=== PATIENT | female | born 1960 | race Caucasian/White ===

== ENCOUNTER → 2016-08-23 | Outpatient (CLI) | payer OTHER ==
[~2016-08-23] MED LIST: CALTTAB10 PO; DOC-Q-LACE PO; IRON CR PO; LORA10TA2 PO; RANI15TA PO; TYLE325T5 PO; VITA100037 PO; VITA500T53 PO
[2016-08-23 08:44] LABS: BASO # 0.1 K/mm3 (0.0-0.2); BASO % 1.3 % (0.0-1.0); EOS # 0.2 K/mm3 (0.0-0.50); EOS % 3.8 % (0.0-3.0); LARGE UNSTAINED CELL # 0.1 K/mm3 (0.0-0.4); LARGE UNSTAINED CELL % 2.8 % (0.0-4.0); LYMPH # 1.4 K/mm3 (1.5-4.5); LYMPH % 27.8 % (24.0-44.0); MEAN CORPUSCULAR HEMOGLOBIN 30.2 pg (27.0-33.0); MEAN CORPUSCULAR VOLUME 91.3 fl (80.0-96.0); MONO # 0.4 K/mm3 (0.0-0.8); NEUTROPHILS # 2.6 K/mm3 (1.8-7.7); NEUTROPHILS % 56.4 % (36.0-66.0); PLATELET COUNT, AUTOMATED 164 k/mm3 (150-450); RED CELL DISTRIBUTION WIDTH 12.8 % (11.5-14.5); WHITE BLOOD COUNT 4.5 K/mm3 (4.0-10.0)
[2016-08-23 09:05] LABS: ALBUMIN 3.7 GM/DL (3.2-5.2); ALBUMIN/GLOBULIN RATIO 1.19 (1.00-1.93); ALKALINE PHOSPHATASE 107 U/L (45-117); ALT/SGPT 32 U/L (12-78); ANION GAP 9 MEQ/L (8-16); AST/SGOT 17 U/L (15-37); BILIRUBIN,TOTAL 0.3 MG/DL (0.2-1.0); BLOOD UREA NITROGEN 24 MG/DL (7-18); CALCIUM LEVEL 8.5 MG/DL (8.5-10.1); CARBON DIOXIDE LEVEL 28 MEQ/L (21-32); CHLORIDE LEVEL 106 MEQ/L (98-107); CREATININE FOR GFR 0.75 MG/DL (0.55-1.02); FERRITIN 223 NG/ML (8-252); GLOMERULAR FILTRATION RATE > 60.0 (>51); GLUCOSE, FASTING 92 MG/DL (70-105); PERCENT SATURATION 32.8 % (13.2-37.4); POTASSIUM SERUM 4.2 MEQ/L (3.5-5.1); SODIUM LEVEL 143 MEQ/L (136-145); TOTAL IRON BINDING CAPACITY 314 UG/DL (250-450); TOTAL PROTEIN 6.8 GM/DL (6.4-8.2)
== END ==
LOC: M LAB 08:22
PROVIDERS: ATTEND Physician Assistant Medical
DX: D50.8 Other iron deficiency anemias (principal); E78.2 Mixed hyperlipidemia; E55.9 Vitamin D deficiency, unspecified

== ENCOUNTER → 2017-01-20 | Outpatient (CLI) | payer OTHER ==
[~2017-01-20] MED LIST changes: -VITA100037 PO; +VITA100067 PO
--- NOTE | 2017-01-21 09:40 | REP ---
Left toes four views : There is no fracture or dislocation. Mineralization and joint spaces are normal. There are no calcifications or foreign bodies. Impression: Negative left toes . Signed by Owen Alcocer MD 01/21/2017 07:29 A
== END ==
LOC: M RAD 19:56
PROVIDERS: ATTEND Physician Assistant
DX: S91.102A Unspecified open wound of left great toe without damage to nail, initial encounter (principal); X58.XXXA Exposure to other specified factors, initial encounter; Y92.9 Unspecified place or not applicable; Y93.9 Activity, unspecified; Y99.9 Unspecified external cause status

== ENCOUNTER → 2017-06-28 | Outpatient (CLI) | payer OTHER ==
[2017-06-28 16:27] LABS: HEMATOCRIT 40.3 % (36.0-47.0); HEMOGLOBIN 13.5 g/dl (12.0-16.0); MEAN CORPUSCULAR HEMOGLOBIN 30.1 pg (27.0-33.0); MEAN CORPUSCULAR HGB CONC 33.5 g/dl (32.0-36.5); MEAN CORPUSCULAR VOLUME 89.8 fl (80.0-96.0); PLATELET COUNT, AUTOMATED 192 10^3/uL (150-450); RED BLOOD COUNT 4.49 10^6/uL (4.00-5.40); RED CELL DISTRIBUTION WIDTH 12.6 % (11.5-14.5); WHITE BLOOD COUNT 8.6 10^3/uL (4.0-10.0)
[2017-06-28 17:58] LABS: ANION GAP 4 MEQ/L (8-16); BLOOD UREA NITROGEN 28 MG/DL (7-18); CALCIUM LEVEL 8.8 MG/DL (8.5-10.1); CARBON DIOXIDE LEVEL 32 MEQ/L (21-32); CHLORIDE LEVEL 106 MEQ/L (98-107); CREATININE FOR GFR 0.64 MG/DL (0.55-1.02); GLOMERULAR FILTRATION RATE > 60.0 (>51); GLUCOSE, FASTING 82 MG/DL (70-105); POTASSIUM SERUM 4.3 MEQ/L (3.5-5.1); SODIUM LEVEL 142 MEQ/L (136-145)
== END ==
LOC: M LAB 16:06
DX: Z01.818 Encounter for other preprocedural examination (principal)
CPT/HCPCS: 80048

== ENCOUNTER → 2017-07-22 | Outpatient (CLI) | payer OTHER | LOC: M EKG 17:28 | DX: Z01.810 Encounter for preprocedural cardiovascular examination (principal) ==

== ENCOUNTER → 2017-09-18 | Outpatient (CLI) | payer OTHER ==
[2017-09-18 09:31] LABS: BASO # 0.1 10^3/uL (0.0-0.2); BASO % 1.3 % (0.0-1.0); EOS # 0.4 10^3/uL (0.0-0.50); EOS % 8.2 % (0.0-3.0); HEMATOCRIT 41.3 % (36.0-47.0); HEMOGLOBIN 13.7 g/dl (12.0-15.5); IMMATURE GRANULOCYTE % 0.2 % (0-3.0); LYMPH # 1.8 10^3/uL (1.5-4.5); LYMPH % 34.1 % (24.0-44.0); MEAN CORPUSCULAR HEMOGLOBIN 29.9 pg (27.0-33.0); MEAN CORPUSCULAR HGB CONC 33.2 g/dl (32.0-36.5); MEAN CORPUSCULAR VOLUME 90.2 fl (80.0-96.0); MONO # 0.6 10^3/uL (0.0-0.8); MONO % 11.4 % (0.0-5.0); NEUTROPHILS # 2.4 10^3/uL (1.8-7.7); NEUTROPHILS % 44.8 % (36.0-66.0); PLATELET COUNT, AUTOMATED 177 10^3/uL (150-450); RED BLOOD COUNT 4.58 10^6/uL (4.00-5.40); RED CELL DISTRIBUTION WIDTH 13.1 % (11.5-14.5); WHITE BLOOD COUNT 5.4 10^3/uL (4.0-10.0)
[2017-09-18 09:56] LABS: ALBUMIN 4.2 GM/DL (3.2-5.2); ALBUMIN/GLOBULIN RATIO 1.45 (1.00-1.93); ALKALINE PHOSPHATASE 99 U/L (45-117); ALT/SGPT 21 U/L (12-78); ANION GAP 4 MEQ/L (8-16); AST/SGOT 15 U/L (7-37); BILIRUBIN,TOTAL 0.3 MG/DL (0.2-1.0); BLOOD UREA NITROGEN 29 MG/DL (7-18); CALCIUM LEVEL 8.6 MG/DL (8.5-10.1); CARBON DIOXIDE LEVEL 29 MEQ/L (21-32); CHLORIDE LEVEL 109 MEQ/L (98-107); CHOLESTEROL LEVEL 218 MG/DL (<200); CHOLESTEROL RISK RATIO 2.945 (<5); CREATININE FOR GFR 0.68 MG/DL (0.55-1.30); FERRITIN 291 NG/ML (8-252); GLOMERULAR FILTRATION RATE > 60.0 (>51); GLUCOSE, FASTING 89 MG/DL (70-100); HDL CHOLESTEROL 74 MG/DL (>40); IRON (FE) 94 UG/DL (50-170); LDL CHOLESTEROL 136.6 MG/DL (<100); NON-HDL-C 144 MG/DL; PERCENT SATURATION 30.3 % (13.2-45.0); POTASSIUM SERUM 4.4 MEQ/L (3.5-5.1); SODIUM LEVEL 142 MEQ/L (136-145); TOTAL IRON BINDING CAPACITY 310 UG/DL (250-450); TOTAL PROTEIN 7.1 GM/DL (6.4-8.2); TRIGLYCERIDES LEVEL 37 MG/DL (<150)
[2017-09-20 08:23] LABS: TOTAL 25(OH) VITAMIN D 64.2 NG/ML (30.0-100.0)
== END ==
LOC: M LAB 08:48
DX: D50.8 Other iron deficiency anemias (principal); E78.2 Mixed hyperlipidemia; E55.9 Vitamin D deficiency, unspecified
CPT/HCPCS: 83550

== ENCOUNTER → 2018-03-15 | Outpatient (REF) | payer OTHER ==
[2018-03-17 14:39] LABS: HPV HYBRID CAPTURE II Negative (Negative)
== END ==
LOC: M SFHCWAGY 15:49
DX: Z12.4 Encounter for screening for malignant neoplasm of cervix (principal)

== ENCOUNTER 2018-03-22 14:32 | Emergency (ER) | payer OTHER ==
[2018-03-22 15:13] LABS: BASO # 0.1 10^3/uL (0.0-0.2); BASO % 0.9 % (0.0-1.0); EOS # 0.1 10^3/uL (0.0-0.50); EOS % 0.8 % (0.0-3.0); HEMATOCRIT 40.9 % (36.0-47.0); HEMOGLOBIN 13.8 g/dl (12.0-15.5); IMMATURE GRANULOCYTE % 0.1 % (0-3.0); LYMPH # 1.7 10^3/uL (1.5-4.5); LYMPH % 21.4 % (24.0-44.0); MEAN CORPUSCULAR HEMOGLOBIN 30.2 pg (27.0-33.0); MEAN CORPUSCULAR HGB CONC 33.7 g/dl (32.0-36.5); MEAN CORPUSCULAR VOLUME 89.5 fl (80.0-96.0); MONO # 0.7 10^3/uL (0.0-0.8); MONO % 8.7 % (0.0-5.0); NEUTROPHILS # 5.4 10^3/uL (1.8-7.7); NEUTROPHILS % 68.1 % (36.0-66.0); PLATELET COUNT, AUTOMATED 185 10^3/uL (150-450); RED BLOOD COUNT 4.57 10^6/uL (4.00-5.40); RED CELL DISTRIBUTION WIDTH 13.2 % (11.5-14.5); WHITE BLOOD COUNT 7.9 10^3/uL (4.0-10.0)
[2018-03-22 15:24] LABS: INR 0.91; PROTHROMBIN TIME 12.3 SECONDS (12.1-14.4)
[2018-03-22 15:25] LABS: PARTIAL THROMBOPLASTIN TIME 24.1 SECONDS (25.4-37.6)
[2018-03-22 16:00] LABS: ALBUMIN 4.1 GM/DL (3.2-5.2); ALBUMIN/GLOBULIN RATIO 1.05 (1.00-1.93); ALKALINE PHOSPHATASE 102 U/L (45-117); ALT/SGPT 27 U/L (12-78); ANION GAP 7 MEQ/L (8-16); AST/SGOT 20 U/L (7-37); BILIRUBIN,DIRECT < 0.1 MG/DL (0.0-0.2); BILIRUBIN,TOTAL 0.1 MG/DL (0.2-1.0); BLOOD UREA NITROGEN 23 MG/DL (7-18); CALCIUM LEVEL 8.7 MG/DL (8.5-10.1); CARBON DIOXIDE LEVEL 28 MEQ/L (21-32); CHLORIDE LEVEL 106 MEQ/L (98-107); CK-MB VALUE MASS < 1.0 NG/ML (<3.6); CPK CREATINE PHOSPHOKINASE 99 U/L (26-192); CREATININE FOR GFR 0.89 MG/DL (0.55-1.30); GLOMERULAR FILTRATION RATE > 60.0 (>51); GLUCOSE, FASTING 89 MG/DL (70-100); LIPASE 215 U/L (73-393); MB/CK RELATIVE INDEX 1.01 (< OR =4); SODIUM LEVEL 141 MEQ/L (136-145); TROPONIN I < 0.02 NG/ML (< 0.10)
[2018-03-22] MEDS ORDERED: ISOVUE-370 76% 100ML VIAL (Q9967) As Ordered (17:11)
[2018-03-22 21:26] LABS: CK-MB VALUE MASS < 1.0 NG/ML (<3.6); CPK CREATINE PHOSPHOKINASE 81 U/L (26-192); MB/CK RELATIVE INDEX 1.23 (< OR =4); TROPONIN I < 0.02 NG/ML (< 0.10)
== END 2018-03-22 21:55 | disposition home or self-care (01) ==
LOC: M ED 14:32
DX: R07.89 Other chest pain (principal); E78.5 Hyperlipidemia, unspecified; K21.9 Gastro-esophageal reflux disease without esophagitis; Z86.69 Personal history of other diseases of the nervous system and sense organs; Z79.899 Other long term (current) drug therapy; Z88.0 Allergy status to penicillin; Z88.1 Allergy status to other antibiotic agents; Z91.89 Other specified personal risk factors, not elsewhere classified
CPT/HCPCS: Q9967

== ENCOUNTER → 2018-12-01 | Outpatient (CLI) | payer OTHER ==
[~2018-12-01] MED LIST changes: +LORA-243 PO; -LORA10TA2 PO; +VITA500T17 PO; -VITA500T53 PO
[2018-12-01 07:16] LABS: BASO # 0.1 10^3/uL (0.0-0.2); BASO % 1.1 % (0.0-1.0); EOS # 0.2 10^3/uL (0.0-0.50); EOS % 2.6 % (0.0-3.0); HEMATOCRIT 41.1 % (36.0-47.0); HEMOGLOBIN 13.6 g/dl (12.0-15.5); MEAN CORPUSCULAR HEMOGLOBIN 29.6 pg (27.0-33.0); MEAN CORPUSCULAR HGB CONC 33.1 g/dl (32.0-36.5); MEAN CORPUSCULAR VOLUME 89.5 fl (80.0-96.0); MONO # 0.7 10^3/uL (0.0-0.8); MONO % 10.9 % (0.0-5.0); NEUTROPHILS # 3.3 10^3/uL (1.8-7.7); NEUTROPHILS % 53.2 % (36.0-66.0); PLATELET COUNT, AUTOMATED 174 10^3/uL (150-450); RED BLOOD COUNT 4.59 10^6/uL (4.00-5.40); WHITE BLOOD COUNT 6.2 10^3/uL (4.0-10.0)
[2018-12-01 07:47] LABS: ALBUMIN 3.8 GM/DL (3.2-5.2); ALT/SGPT 33 U/L (12-78); BILIRUBIN,TOTAL 0.2 MG/DL (0.2-1.0); BLOOD UREA NITROGEN 20 MG/DL (7-18); CALCIUM LEVEL 8.5 MG/DL (8.8-10.2); CARBON DIOXIDE LEVEL 28 MEQ/L (21-32); CHLORIDE LEVEL 106 MEQ/L (98-107); CHOLESTEROL LEVEL 239 MG/DL (<200); CHOLESTEROL RISK RATIO 2.779 (<5); CREATININE FOR GFR 0.88 MG/DL (0.55-1.30); FERRITIN 242 NG/ML (8-252); FREE T4 1.06 NG/DL (0.76-1.46); GLOMERULAR FILTRATION RATE > 60.0 (>45); GLUCOSE, FASTING 90 MG/DL (70-100); HDL CHOLESTEROL 86 MG/DL (>40); IRON (FE) 76 UG/DL (50-170); LDL CHOLESTEROL 143 MG/DL (<100); NON-HDL-C 153 MG/DL; PERCENT SATURATION 23.5 % (13.2-45.0); POTASSIUM SERUM 3.7 MEQ/L (3.5-5.1); SODIUM LEVEL 141 MEQ/L (136-145); TOTAL IRON BINDING CAPACITY 324 UG/DL (250-450); TOTAL PROTEIN 7.3 GM/DL (6.4-8.2); TRIGLYCERIDES LEVEL 49 MG/DL (<150)
== END ==
LOC: M LAB 06:41
PROVIDERS: ATTEND Physician Assistant Medical
DX: E55.9 Vitamin D deficiency, unspecified (principal); D50.8 Other iron deficiency anemias; K59.00 Constipation, unspecified; K21.9 Gastro-esophageal reflux disease without esophagitis

== ENCOUNTER → 2018-12-26 | Outpatient (CLI) | payer OTHER ==
[~2018-12-26] MED LIST changes: +FLON27.5 NARES; +METHACHOLINE KIT (J7674) INH ONE; +OMEP-221 PO; +SYMB16INH INH
--- NOTE | 2018-12-26 09:56 | PFTRPT ---
Height: 61.00 Inches Weight: 122.00 Lbs BSA: 1.53 Diagnosis: R05 DATE OF PROCEDURE: 12/26/2018 ORDERED BY: Dr. Ponce INTERPRETATION: Study of excellent technical quality. Under protocol, methacholine was administered. At a dose of 2.5 mg or 13.875 CDUs, a 31% decline in the FEV1 was noted. PC of 0.64 is significant. Flow rates did return to baseline post bronchodilator administration. IMPRESSION: Positive methacholine challenge study. MTDD
--- NOTE | 2018-12-27 08:09 | METHCHAL ---
DATE OF PROCEDURE: 12/26/2018 ORDERED BY: Dr. Ponce INTERPRETATION: Study of excellent technical quality. Under protocol, methacholine was administered. At a dose of 2.5 mg or 13.875 CDUs, a 31% decline in the FEV1 was noted. PC of 0.64 is significant. Flow rates did return to baseline post bronchodilator administration. IMPRESSION: Positive methacholine challenge study.
== END ==
LOC: M CARPUL 08:44
PROVIDERS: ATTEND Allergy & Immunology Allergy
DX: R05 Cough (principal); R06.00 Dyspnea, unspecified
CPT/HCPCS: 94070; J7674

== ENCOUNTER → 2019-05-08 | Outpatient (CLI) | payer OTHER ==
[~2019-05-08] MED LIST changes: -FLON27.5 NARES; -METHACHOLINE KIT (J7674) INH ONE; -OMEP-221 PO; -SYMB16INH INH
[2019-05-08 12:50] LABS: BASO # 0.1 10^3/uL (0.0-0.2); EOS # 0.1 10^3/uL (0.0-0.5); HEMATOCRIT 43.1 % (36.0-47.0); HEMOGLOBIN 13.9 g/dl (12.0-15.5); LYMPH % 16.7 % (24.0-44.0); MEAN CORPUSCULAR HEMOGLOBIN 29.8 pg (27.0-33.0); MEAN CORPUSCULAR HGB CONC 32.3 g/dl (32.0-36.5); MEAN CORPUSCULAR VOLUME 92.5 fl (80.0-96.0); MONO # 0.8 10^3/uL (0.0-0.8); MONO % 13.9 % (0.0-5.0); NEUTROPHILS % 67.2 % (36.0-66.0); PLATELET COUNT, AUTOMATED 187 10^3/uL (150-450); RED BLOOD COUNT 4.66 10^6/uL (4.00-5.40)
[2019-05-08 12:53] LABS: ALT/SGPT 32 U/L (12-78); AMYLASE 42 U/L (25-115); BILIRUBIN,TOTAL 0.3 MG/DL (0.2-1.0); BLOOD UREA NITROGEN 20 MG/DL (7-18); CALCIUM LEVEL 9.2 MG/DL (8.8-10.2); CARBON DIOXIDE LEVEL 30 MEQ/L (21-32); CHLORIDE LEVEL 107 MEQ/L (98-107); CREATININE FOR GFR 0.76 MG/DL (0.55-1.30); GLOMERULAR FILTRATION RATE > 60.0 (>45); GLUCOSE, FASTING 92 MG/DL (70-100); LIPASE 155 U/L (73-393); POTASSIUM SERUM 4.6 MEQ/L (3.5-5.1); SODIUM LEVEL 143 MEQ/L (136-145); TOTAL PROTEIN 7.5 GM/DL (6.4-8.2)
== END ==
LOC: M ADAMS 10:46
PROVIDERS: ATTEND Physician Assistant
DX: R10.13 Epigastric pain (principal)

== ENCOUNTER 2019-06-05 10:20 | Day surgery (SDC) | payer OTHER ==
[~2019-06-05] VITALS: Ht 154.9 cm; Wt 54.4 kg
[~2019-06-05 10:20] MED LIST changes: +FLON27.5 NARES; +LIDOCAINE 2% INJ 100 MG/5 ML SDV (FOR ANES.) As Ordered ONE; +NS 1,000 ML IV ONE; +OMEP-221 PO; +PROPOFOL 200 MG/20 ML VIAL As Ordered ONE; +SYMB16INH INH
[2019-06-05 13:19] VITALS: BP 134/91
--- NOTE | 2019-06-05 13:42 | ROOR ---
Patient Name: Felicia Franco Procedure Date: 06/05/2019 12:38 PM Date of : 1960 Age: 58 Room: [facility] Gender: Female Note Status: Finalized Procedure: Upper GI endoscopy Indications: Suspected gastro-esophageal reflux disease, Suspected non-erosive esophageal reflux Providers: Carlito Lechuga MD Referring MD: ROCAEL Contreras Requesting Provider: Medicines: Monitored Anesthesia Care Complications: No immediate complications. Procedure: Pre-Anesthesia Assessment: - Prior to the procedure, a History and Physical was performed, and patient medications and allergies were reviewed. The patient is competent. The risks and benefits of the procedure and the sedation options and risks were discussed with the patient. All questions were answered and informed consent was obtained. Patient identification and proposed procedure were verified by the physician, the nurse and the anesthesiologist in the procedure room. Mental Status Examination: alert and oriented. Prophylactic Antibiotics: The patient does not require prophylactic antibiotics. Prior Anticoagulants: The patient has taken no previous anticoagulant or antiplatelet agents. After reviewing the risks and benefits, the patient was deemed in satisfactory condition to undergo the procedure. The anesthesia plan was to use monitored anesthesia care (MAC). Immediately prior to administration of medications, the patient was re-assessed for adequacy to receive sedatives. The heart rate, respiratory rate, oxygen saturations, blood pressure, adequacy of pulmonary ventilation, and response to care were monitored throughout the procedure. The physical status of the patient was re-assessed after the procedure. The Endoscope was introduced through the mouth, and advanced to the second part of duodenum. The upper GI endoscopy was accomplished without difficulty. The patient tolerated the procedure well. Findings: The Z-line was regular and was found 36 cm from the incisors. The ADAIR capsule with delivery system was introduced through the mouth and advanced into the esophagus, such that the ADAIR pH capsule was positioned 30 cm from the incisors, which was 6 cm proximal to the GE junction. Suction was applied to the well of the ADAIR pH capsule to suck in the adjacent mucosa of the esophagus using the external vacuum pump set at a minimum vacuum pressure of 550 mmHg for 30 seconds. The ADAIR pH capsule was then deployed by depressing the plunger on top of the handle to advance the locking pin into the mucosa, thereby attaching the capsule to the esophagus. The plunger was then rotated a quarter turn clockwise to release the capsule from the delivery system. The delivery system was then withdrawn. Endoscopy was utilized for probe placement and diagnostic evaluation. The scope was reinserted to evaluate placement of the ADAIR capsule. Visualization showed the ADAIR capsule to be in an appropriate position. Scattered mild inflammation characterized by erythema and granularity was found in the gastric antrum. Biopsies were taken with a cold forceps for Helicobacter pylori testing. Verification of patient identification for the specimen was done by the physician and nurse using the patient's name, date and medical record number. Estimated blood loss was minimal. The duodenal bulb and second portion of the duodenum were normal. Impression: - Z-line regular, 36 cm from the incisors. - Gastritis. Biopsied. - Normal duodenal bulb and second portion of the duodenum. - The ADAIR pH capsule was positioned 30 cm from the incisors, which was 6 cm proximal to the GE junction. Recommendation: - Patient has a contact number available for emergencies. The signs and symptoms of potential delayed complications were discussed with the patient. Return to normal activities tomorrow. Written discharge instructions were provided to the patient. - Resume previous diet. - Continue present medications. - Follow an antireflux regimen. - Hold Acid suppressive medications for 48 hours. - Telephone GI clinic for pathology results in 2 weeks. - Return to primary care physician. Carlito Lechuga MD Carlito Lechuga MD 06/05/2019 1:42:15 PM Electronically signed by Carlito Lechuga MD Number of Addenda: 0 Note Initiated On: 06/05/2019 12:38 PM Estimated Blood Loss: Estimated blood loss was minimal.
== END 2019-06-05 13:20 | disposition home or self-care (01) ==
LOC: M OPP 10:20
PROVIDERS: ATTEND Internal Medicine Gastroenterology
DX: K29.70 Gastritis, unspecified, without bleeding (principal); K21.9 Gastro-esophageal reflux disease without esophagitis; Z79.899 Other long term (current) drug therapy; Z88.0 Allergy status to penicillin; Z88.1 Allergy status to other antibiotic agents; Z88.4 Allergy status to anesthetic agent; Z91.048 Other nonmedicinal substance allergy status

== ENCOUNTER → 2019-11-23 | Outpatient (CLI) | payer OTHER ==
[~2019-11-23] MED LIST changes: -LIDOCAINE 2% INJ 100 MG/5 ML SDV (FOR ANES.) As Ordered ONE; -NS 1,000 ML IV ONE; -PROPOFOL 200 MG/20 ML VIAL As Ordered ONE
[2019-11-23 08:58] LABS: BASO # 0.1 10^3/uL (0.0-0.2); BASO % 1.5 % (0.0-1.0); EOS # 0.1 10^3/uL (0.0-0.5); EOS % 2.5 % (0.0-3.0); HEMATOCRIT 41.9 % (36.0-47.0); HEMOGLOBIN 13.9 g/dl (12.0-15.5); LYMPH # 1.7 10^3/uL (1.5-5.0); LYMPH % 31.8 % (24.0-44.0); MEAN CORPUSCULAR HEMOGLOBIN 30.1 pg (27.0-33.0); MEAN CORPUSCULAR HGB CONC 33.2 g/dl (32.0-36.5); MEAN CORPUSCULAR VOLUME 90.7 fl (80.0-96.0); MONO # 0.6 10^3/uL (0.0-0.8); MONO % 11.6 % (0.0-5.0); NEUTROPHILS # 2.7 10^3/uL (1.5-8.5); NEUTROPHILS % 52.4 % (36.0-66.0); PLATELET COUNT, AUTOMATED 170 10^3/uL (150-450); RED BLOOD COUNT 4.62 10^6/uL (4.00-5.40); WHITE BLOOD COUNT 5.2 10^3/uL (4.0-10.0)
[2019-11-23 09:39] LABS: ALBUMIN 3.8 GM/DL (3.2-5.2); ALT/SGPT 24 U/L (12-78); BILIRUBIN,TOTAL 0.4 MG/DL (0.2-1.0); BLOOD UREA NITROGEN 20 MG/DL (7-18); CALCIUM LEVEL 8.6 MG/DL (8.8-10.2); CARBON DIOXIDE LEVEL 29 MEQ/L (21-32); CHLORIDE LEVEL 107 MEQ/L (98-107); CHOLESTEROL LEVEL 228 MG/DL (<200); CREATININE FOR GFR 0.84 MG/DL (0.55-1.30); FERRITIN 294 NG/ML (8-252); GLOMERULAR FILTRATION RATE > 60.0 (>45); GLUCOSE, FASTING 92 MG/DL (70-100); HDL CHOLESTEROL 75 MG/DL (>40); IRON (FE) 99 UG/DL (50-170); LDL CHOLESTEROL 143 MG/DL (<100); NON-HDL-C 153 MG/DL; PERCENT SATURATION 34.5 % (13.2-45.0); SODIUM LEVEL 142 MEQ/L (136-145); TOTAL IRON BINDING CAPACITY 287 UG/DL (250-450); TOTAL PROTEIN 6.9 GM/DL (6.4-8.2); TRIGLYCERIDES LEVEL 50 MG/DL (<150)
== END ==
LOC: M LAB 07:43
PROVIDERS: ATTEND Physician Assistant Medical
DX: E78.2 Mixed hyperlipidemia (principal); D50.9 Iron deficiency anemia, unspecified; K21.9 Gastro-esophageal reflux disease without esophagitis

== ENCOUNTER → 2020-01-04 | Outpatient (CLI) | payer OTHER ==
--- NOTE | 2020-01-04 09:16 | REP ---
Clinical: Contusion. Technique: AP, lateral, bilateral oblique views of the right first toe. Findings: Moderate degenerative changes are appreciated primarily involving the metatarsophalangeal joint with subchondral sclerosis, spurring, joint space narrowing, and swelling. No acute fracture or dislocation. No subcutaneous emphysema or foreign body. Impression: Degenerative changes. No acute fracture or dislocation. Electronically Signed by Carlos Miramontes MD 01/04/2020 09:08 A
== END ==
LOC: M WUC 08:45
PROVIDERS: ATTEND Physician Assistant
DX: S90.121A Contusion of right lesser toe(s) without damage to nail, initial encounter (principal); X58.XXXA Exposure to other specified factors, initial encounter; Y92.89 Other specified places as the place of occurrence of the external cause

== ENCOUNTER 2020-05-09 10:29 | Emergency (ER) | payer OTHER ==
[~2020-05-09] VITALS: Ht 154.9 cm; Wt 55.7 kg
[2020-05-09] MEDS ORDERED: NS 1,000 ML IV ONE (11:15)
[2020-05-09] MEDS ORDERED: ONDANSETRON 4MG/2ML VIAL IV ONE (11:15)
[2020-05-09 11:27] LABS: BASO # 0.1 10^3/uL (0.0-0.2); BASO % 0.8 % (0.0-1.0); EOS # 0.2 10^3/uL (0.0-0.5); EOS % 3.2 % (0.0-3.0); HEMOGLOBIN 13.8 g/dl (12.0-15.5); LYMPH # 1.5 10^3/uL (1.5-5.0); LYMPH % 23.6 % (24.0-44.0); MEAN CORPUSCULAR HEMOGLOBIN 29.2 pg (27.0-33.0); MEAN CORPUSCULAR HGB CONC 32.1 g/dl (32.0-36.5); MEAN CORPUSCULAR VOLUME 90.9 fl (80.0-96.0); MONO # 0.7 10^3/uL (0.0-0.8); NEUTROPHILS # 3.8 10^3/uL (1.5-8.5); NEUTROPHILS % 61.1 % (36.0-66.0); PLATELET COUNT, AUTOMATED 186 10^3/uL (150-450); RED BLOOD COUNT 4.73 10^6/uL (4.00-5.40); WHITE BLOOD COUNT 6.3 10^3/uL (4.0-10.0)
[2020-05-09] MEDS ORDERED: ISOVUE-370 76% 100ML VIAL As Ordered ONE (11:48)
--- NOTE | 2020-05-09 12:04 | REP ---
INDICATION: nausea, lower abdominal pain, low back pain. COMPARISON: None TECHNIQUE: Axial contrast-enhanced images from the lung bases to the pubic symphysis using 100 cc Isovue 370 intravenous contrast material. Coronal and sagittal reformations obtained. This CT examination was performed using the following dose reduction techniques: Automated exposure control, adjustment of mA and/or kv according to the patient's size, and the use of iterative reconstruction technique. FINDINGS: Lung bases are clear. Visualized heart and pericardium normal. Liver, spleen, pancreas, bilateral adrenal glands and kidneys are normal. Incidental 1.2 cm left renal cyst suggested. Mild mucosal thickening involving the mid to distal transverse colon to the level of the splenic flexure may reflect infectious/inflammatory colitis. Remainder of the small and large bowel is unremarkable. Pelvis demonstrates normal bladder and age-appropriate uterus/adnexa. No ascites. No free air. No intraperitoneal or retroperitoneal adenopathy. Abdominal aorta and vasculature appear normal. Musculoskeletal structures are intact and without acute osseous abnormality. IMPRESSION: Mild colitis involving the transverse colon cannot be excluded and should be correlated clinically. <Electronically signed by Carlos Miramontes > 05/09/20 1200
--- NOTE | 2020-05-09 12:07 | REP ---
INDICATION: low back pain, no known injury COMPARISON: 11/11/2009 TECHNIQUE: AP, lateral, bilateral oblique, and coned-down views of the lumbar spine. FINDINGS: Alignment and lordosis maintained without acute fracture/compression injury or subluxation. Age-related osteopenia and moderate/early advanced multilevel degenerative changes noted throughout the visualized lower thoracic and lumbosacral spine. Findings include osteophytosis, endplate sclerosis, scattered disc space narrowing and hypertrophic facet changes. IMPRESSION: Osteopenia and moderate/early advanced multilevel degenerative spondylosis. No acute fracture/compression injury or subluxation. <Electronically signed by Carlos Miramontes > 05/09/20 [id number]
[2020-05-09 12:10] LABS: ALBUMIN 4.3 GM/DL (3.2-5.2); ALT/SGPT 20 U/L (12-78); BILIRUBIN,DIRECT < 0.1 MG/DL (0.0-0.2); BILIRUBIN,TOTAL 0.4 MG/DL (0.2-1.0); LIPASE 222 U/L (73-393); TOTAL PROTEIN 7.6 GM/DL (6.4-8.2)
[2020-05-09 12:43] VITALS: BP 132/78
== END 2020-05-09 13:01 | disposition home or self-care (01) ==
LOC: M ED 10:29
DX: M51.37 Other intervertebral disc degeneration, lumbosacral region (principal); K52.9 Noninfective gastroenteritis and colitis, unspecified; M85.88 Other specified disorders of bone density and structure, other site; J45.909 Unspecified asthma, uncomplicated; K21.9 Gastro-esophageal reflux disease without esophagitis; E78.5 Hyperlipidemia, unspecified; Z79.899 Other long term (current) drug therapy; Z88.0 Allergy status to penicillin; Z88.1 Allergy status to other antibiotic agents; Z91.89 Other specified personal risk factors, not elsewhere classified
CPT/HCPCS: 72110; 74177; 80047; 80076; 81001; 83690; 85025; 96361; 96374; 99284; J2405; Q9967

== ENCOUNTER → 2020-06-29 | Outpatient (CLI) | payer OTHER ==
[~2020-06-29] MED LIST changes: +FERR325T3 PO
== END ==
LOC: M LABSMTC 08:34
PROVIDERS: ATTEND Anesthesiology
DX: Z01.812 Encounter for preprocedural laboratory examination (principal); Z20.822 Contact with and (suspected) exposure to COVID-19

== ENCOUNTER 2020-07-04 07:27 | Day surgery (SDC) | payer OTHER ==
[~2020-07-04] VITALS: Ht 154.9 cm; Wt 50.8 kg
[~2020-07-04 07:27] MED LIST changes: +NS 1,000 ML IV ONE
--- OUTSIDE RECORDS SUMMARY | 2020-07-04 07:31 | CCD | Continuity of Care Document ---
Author Author Felicia FALK M.D. Organization Unknown Address [address], [place] [address] Phone [phone] Care Team Providers Care Commercial Finance Analyst Name Role Phone Schuyler, Osiris VYAS Unavailable Problems Active Problems Provider Date Allergic rhinitis due to house dust mite Onset: 10/06/2018 Note: On IT. 3+ reaction to dust mites o n scratch test completed in 2018. Allergic rhinitis due to animal dander O nset: 10/06/2018 Note: On IT. 4+ reaction to cat dander o n intradermal test completed in 2018. Mild persistent asthma Onset: 06/30/2018 Note: Reconfirmed by positive methacholi ne challenge. Gastroesophageal reflux disease Onset: 08/01/2017 Social History Type Date Description Comments Sex Unknown Tobacco Use Reviewed: 04/04/20 Patient has never smoked Smoking Status Reviewed: 04/04/20 Patient has never smoked Allergies, Adverse Reactions, Alerts Active Allergies Reaction Severity Comments Date Amoxicillin Rash 02/04/2019 Erythromycin Abdominal pain, Cough 2018 Betadine Rash 04/05/2019 Medications Active Medications SIG Qnty Indications Ordering Provide r Date Budesonide/Formoterol Fumarate Dihydrate 160-4.5mcg/Act Aerosol 2 puffs by mouth two times per day 10.200gm J45 .30 Chris Falk M.D. 04/04/2020 Flonase Sensimist 27 .5mcg/[place] Suspension 2 sprays each nostril every night 1units J30.89 Chris Falk M.D. 04/05/2019 Proair HFA 108(90Base) mcg/Act Aer osol inhale 1 - 2 puffs (90 - 180 mcg) by inhalation route every 4 hours as needed Unknown 01/23/[address] Unknown 03/29/2018 History Medications Airduo Respiclick 113/14 113-14mcg/Act Aerosol 1 puff by mouth two times per day 1units J45.30 Chris Falk M.D. 02/28/2020 - 04/04/2020 Medications Administered in Office Medication SIG Qnty Indications Ordering Provider Date Allergy Injection Single Injection Chris Constance Falk 04/15/2020 Allergy Injection Single Injection Chris Chrostshanti, Constance 03/25/2020 Allergy Injection Single Injection Chris Rosario, Constance 03/04/2020 Allergy Injection Single Injection Chris Rosario, Constance 02/12/2020 Allergy Injection Single Injection Chris Chrostshanti, Constance 01/22/2020 Allergy Injection Single Injection Chris Constance Falk 01/01/2020 Allergy Injection Single Injection Chris Constance Falk 12/11/2019 Allergy Injection Single Injection Chris Rosario, Constance 11/20/2019 Allergy Injection Single Injection Chris Rosario, KarineDArsh 10/31/2019 Allergy Injection Single Injection Chris Rosario, KarineDArsh 10/11/2019 Allergy Injection Single Injection Chris Maguiostshanti, KarineDArsh 09/21/2019 Allergy Injection Single Injection Chris Maguiostshanti, M.DArsh 08/29/2019 Allergy Injection Single Injection SEDA Escudero 08/10/2019 Allergy Injection Single Injection Chris Chrostshanti, MArshDArsh 08/10/2019 Allergy Injection Single Injection Chris Chrostshanti, M.DArsh 07/20/2019 Allergy Injection Single Injection Chris Chrostshanti, M.DArsh 07/06/2019 Allergy Injection Single Injection Chris Chrostshanti, M.DArsh 07/03/2019 Allergy Injection Single Injection Chris Chrostshanti, M.DArsh 06/29/2019 Allergy Injection Single Injection Chris Rosario, M.DArsh 06/26/2019 Allergy Injection Single Injection Chris Chrcam, MArshDArsh 06/22/2019 Allergy Injection Single Injection Chris Chrostshanti, M.D. 06/19/2019 Allergy Injection Single Injection Chris Chrostshanti, M.D. 06/12/2019 Allergy Injection Single Injection Chris Chrostowski, M.D. 06/09/2019 Allergy Injection Single Injection Chris Chrostowski, M.D. 06/01/2019 Allergy Injection Single Injection Chris Chrostshanti, M.D. 05/29/2019 Allergy Injection Single Injection Chris Maguiostshanti, M.D. 05/25/2019 Allergy Injection Single Injection Chris Chrostowski, M.D. 05/22/2019 Allergy Injection Single Injection Chris Maguiostshanti, M.D. 05/16/2019 Allergy Injection Single Injection Chris Maguiostshanti, M.DArsh 05/08/2019 Allergy Injection Single Injection Chris Maguiostshanti, M.D. 05/04/2019 Allergy Injection Single Injection Chris Maguiostshanti, M.DArsh 05/01/2019 Allergy Injection Single Injection Chris Maguiostshanti, M.DArsh 04/27/2019 Allergy Injection Single Injection Chris Maguiostshanti, M.D. 04/24/2019 Allergy Injection Single Injection Chris Maguiostshanti, M.D. 04/17/2019 Allergy Injection Single Injection Chris Maguiostshanti, M.DArsh 04/13/2019 Allergy Injection Single Injection Chris Maguiostshanti, M.D. 04/10/2019 Allergy Injection Single Injection Chris Maguiostshanti, M.D. 04/06/2019 Allergy Injection Single Injection Chris Maguicam, M.DArsh 04/03/2019 Allergy Injection Single Injection Chris Chrostshanti, M.D. 03/30/2019 Allergy Injection Single Injection Chris Chrostshanti, M.D. 03/27/2019 Allergy Injection Single Injection Chris Chrostshanti, M.DArsh 03/24/2019 Allergy Injection Single Injection Chris Chrostshanti, M.D. 03/20/2019 Allergy Injection Single Injection Chirs Chrostshanti, M.DArsh 03/17/2019 Allergy Injection Single Injection SEDA Davison 03/13/2019 Allergy Injection Single Injection Chris Rosario, MArshDArsh 03/13/2019 Allergy Injection Single Injection SEDA Davison 03/09/2019 Allergy Injection Single Injection Chris Falk M.D. 03/09/2019 Allergy Injection Single Injection SEDA Davison 03/06/2019 Allergy Injection Single Injection Chris Falk M.D. 03/06/2019 Allergy Injection Single Injection Chris Falk M.D. 03/02/2019 Allergy Injection Single Injection Chris Falk M.D. 02/27/2019 Allergy Injection Single Injection Chris Falk M.D. 02/21/2019 Immunizations Description No Information Available Vital Signs Date Vital Result Comment 04/04/2020 3:38pm Weight 124.38 lb Height 61 inches 5'1" Heart Rate 84 /min Respiratory Rate 16 /min BP Systolic 133 mmHg BP Diastolic 78 mmHg BMI (Body Mass Index) 23.5 kg/m2 10/04/2019 3:37pm Weight 124.12 lb Height 61 inches 5'1" Heart Rate 97 /min Respiratory Rate 18 /min BP Systolic 145 mmHg BP Diastolic 78 mmHg BMI (Body Mass Index) 23.5 kg/m2 Results Description No Information Available Procedures Date Code Description Status 04/15/2020 93632 Allergy Injection Single Complet ed 04/04/2020 63453 Bronchodilation Resp onsiveness Spirometry Pre/Post Bronchodil Adm Completed 03/25/2020 91968 Allergy Injection Single Complet ed 03/04/2020 11336 Allergy Injection Single Complet ed 02/12/2020 51063 Allergy Injection Single Complet ed 01/22/2020 12376 Allergy Injection Single Complet ed 01/01/2020 34715 Allergy Injection Single Complet ed 12/11/2019 08227 Allergy Injection Single Complet ed 11/20/2019 75682 Allergy Injection Single Complet ed 11/02/2019 60945 Allergy Antigens Single Or Multi ple Completed 10/31/2019 44977 Allergy Injection Single Complet ed Medical Devices Description No Information Available Encounters Type Date Location Provider Dx Diagnosis Office Visit 04/04/2020 3:30p Main Office Chris Falk M.D. J45.30 Mild persistent asthma, uncomplicated J30.89 Other allergic rhinitis J30.81 Allergic rhinitis due to ani mal (cat) (dog) hair and dander Assessments Date Code Description Provider 04/15/2020 J30.81 Allergic rhinitis due to animal (cat) (dog) hair and dander Chris Falk M.D. 04/15/2020 J30.89 Other allergic rhinitis Chris Falk M.D. Plan of Treatment Future Appointment(s):* 05/06/2020 10:30 am - Allergy Injection at Main Office * 10/07/2020 3:00 pm - Chris Falk M.D. at Main Office 04/04/2020 - Chris Falk M.D.* J45.30 Mild persistent asthma, uncomplicated* New Medication:* Budesonide/Formoterol Fumarate Dihydrate 160- 4.5 mcg/Act - 2 puffs by mouth two times per day * Recommendations:* Should continue on Symbicort 160-4.5 mcg/act (2 puffs BID). Risks and benefits associated with ICS/LABA use were reviewed with patient. Will provide sample and submit for prior authorization as she has failed Air Duo (see HPI). We will contact her with insurance determination. * J30.89 Allergic rhinitis due to dust mites.* Recommendations:* Effective allergy avoidance measures were reviewed and recommended. The patient should stay on immunotherapy as per protocol. Risks and benefits associated with allergy immunotherapy were reviewed. She should continue using nasal spray daily (Flonase Sensimist). The spray should be used consistently to be effective. The patient may use oral antihistamine when needed to suppress eye itching, itchy nose and sneezing. * J30.81 Allergic rhinitis due to animal (cat) hair and dander* Recommendations: * Effective allergy avoidance measures in regards to allergy to pets were reviewed. See additional recommendations above. * All * Follow up:* 6 months with PFT. Sooner if needed. Functional Status Description No Information Available Mental Status Description No Information Available Referrals Description No Information Available
--- OUTSIDE RECORDS SUMMARY | 2020-07-04 07:31 | CCD | Continuity of Care Document ---
Author Author Felicia FALK M.D. Organization Unknown Address [address], [address], [place] [address] Phone [phone] Care Team Providers Care Order Packer Name Role Phone Schuyler, Osiris VYAS Unavailable [...] Chris Falk M.D. 04/04/2020 Flonase Sensimist 27 .5mcg/[place] Suspension 2 sprays each nostril every night [...] Ordering Provider Date Allergy Injection Single Injection Chrisglenda Falk M.D. 05/06/2020 Allergy Injection Single Injection Chris Constance Falk 04/15/2020 Allergy Injection Single Injection Chris Constance Falk 03/25/2020 Allergy Injection Single Injection Chris Constance Falk 03/04/2020 Allergy Injection Single Injection Chris Constance Falk 02/12/2020 Allergy Injection Single Injection Chris Constance Falk 01/22/2020 Allergy Injection Single Injection Chris Constance Falk 01/01/2020 Allergy Injection Single Injection Chris Constance Falk 12/11/2019 Allergy Injection Single Injection Chris Constance Falk 11/20/2019 Allergy Injection Single Injection Chris Constance Falk 10/31/2019 Allergy Injection Single Injection Chris Rosario, Constance 10/11/2019 Allergy Injection Single Injection Chris Constance Falk 09/21/2019 Allergy Injection Single Injection Chris Constance Falk 08/29/2019 Allergy Injection Single Injection DIONE Escudero-Natividad 08/10/2019 Allergy Injection Single Injection Chris Chrostshanti, Constance 08/10/2019 Allergy Injection Single Injection Chris Constance Falk 07/20/2019 Allergy Injection Single Injection Chris Rosario, Constance 07/06/2019 Allergy Injection Single Injection Chris Chrcam, Constance 07/03/2019 Allergy Injection Single Injection Chris Karine FalkDArsh 06/29/2019 Allergy Injection Single Injection Chris Rosario, Constance 06/26/2019 Allergy Injection Single Injection Chris Chrostowski, M.D. 06/22/2019 Allergy Injection Single Injection Chris Chrostowski, M.D. 06/19/2019 Allergy Injection Single Injection Chris Chrostowski, M.D. 06/12/2019 Allergy Injection Single Injection Chris Chrostowski, M.D. 06/09/2019 Allergy Injection Single Injection Chris Chrostowski, M.D. 06/01/2019 Allergy Injection Single Injection Chris Chrostowski, M.D. 05/29/2019 Allergy Injection Single Injection Chris Chrostowski, M.D. 05/25/2019 Allergy Injection Single Injection Chris Chrostowski, M.D. 05/22/2019 Allergy Injection Single Injection Chris Chrostowski, M.DArsh 05/16/2019 Allergy Injection Single Injection Chris Chrostowski, M.D. 05/08/2019 Allergy Injection Single Injection Chris Chrostshanti, M.DArsh 05/04/2019 Allergy Injection Single Injection Chris Chrostshanti, M.DArsh 05/01/2019 Allergy Injection Single Injection Chris Chrostowski, M.D. 04/27/2019 Allergy Injection Single Injection Chris Chrostshanti, M.D. 04/24/2019 Allergy Injection Single Injection Chris Chrostshanti, M.DArsh 04/17/2019 Allergy Injection Single Injection Chris Chrostshanti, M.D. 04/13/2019 Allergy Injection Single Injection Chris Chrostshanti, M.D. 04/10/2019 Allergy Injection Single Injection Chris Chrostshanti, M.D. 04/06/2019 Allergy Injection Single Injection Chris Chrostowski, M.D. 04/03/2019 Allergy Injection Single Injection Chris Chrostowski, M.D. 03/30/2019 Allergy Injection Single Injection Chris Chrostshanti, M.D. 03/27/2019 Allergy Injection Single Injection Chris Chrostshanti, M.D. 03/24/2019 Allergy Injection Single Injection Chris Chrostowski, M.D. 03/20/2019 Allergy Injection Single Injection Chris Chrostshanti, M.D. 03/17/2019 Allergy Injection Single Injection SEDA Davison 03/13/2019 Allergy Injection Single Injection Chris Chrostshanti, M.D. 03/13/2019 Allergy Injection Single Injection SEDA Davison [...] Information Available Procedures Date Code Description Status 05/06/2020 51646 Allergy Injection Single Complet ed 04/17/2020 43063 Allergy Antigens Single Or Multi ple Completed 04/15/2020 72923 Allergy Injection Single Complet ed 04/04/2020 64648 Bronchodilation Resp onsiveness Spirometry Pre/Post Bronchodil Adm Completed 03/25/2020 72321 Allergy Injection Single Complet ed 03/04/2020 15190 Allergy Injection Single Complet ed 02/12/2020 01113 Allergy Injection Single Complet ed 01/22/2020 51010 Allergy Injection Single Complet ed 01/01/2020 14258 Allergy Injection Single Complet ed 12/11/2019 43739 Allergy Injection Single Complet ed 11/20/2019 52548 Allergy Injection Single Complet ed Medical Devices Description No Information Available Encounters Type Date Location Provider Dx Diagnosis Office Visit 04/04/2020 3:30p Main Office Chris Falk M.D. J45.30 Mild persistent asthma, uncomplicated J30.89 Other allergic rhinitis J30.81 Allergic rhinitis due to ani mal (cat) (dog) hair and dander Assessments Date Code Description Provider 05/06/2020 J30.81 Allergic rhinitis due to animal (cat) (dog) hair and dander Chris Falk M.D. 05/06/2020 J30.89 Other allergic rhinitis Chris Falk M.D. Plan of Treatment Future Appointment(s):* 05/27/2020 11:30 am - Allergy Injection at Main Office * 05/27/2020 1:20 pm - Allergy Injection at Main Office * [...]
--- OUTSIDE RECORDS SUMMARY | 2020-07-04 07:31 | CCD | Continuity of Care Document ---
Author Author Felicia FALK M.D. Organization Unknown Address [address], [address], [place] [address] Phone [phone] Care Team Providers Care Ore Crusher Name Role Phone Schuyler, Osiris VYAS Unavailable [...] Chris Falk M.D. 04/04/2020 Flonase Sensimist 27 .5mcg/[place] Suspension 2 sprays each nostril every night [...] Allergy Injection Single Injection Chrisglenda Falk M.D. 05/27/2020 Allergy Injection Single Injection Chris Constance Falk 05/06/2020 Allergy Injection Single Injection Chris Constance [...] Falk 11/20/2019 Allergy Injection Single Injection Chris Rosario, Constance 10/31/2019 Allergy Injection Single Injection Chris Constance Falk 10/11/2019 Allergy Injection Single Injection Chris Constance Falk 09/21/2019 Allergy Injection Single Injection Chris Constance Falk 08/29/2019 Allergy Injection Single Injection DIONE Escudero-Natividad 08/10/2019 Allergy Injection Single Injection Chris Constance Falk 08/10/2019 Allergy Injection Single Injection Chris Constance Falk 07/20/2019 Allergy Injection Single Injection Chris Chrcam, Constance 07/06/2019 Allergy Injection Single Injection Chris Karine FalkDArsh 07/03/2019 Allergy Injection Single Injection Chris Rosario, Constance 06/29/2019 Allergy Injection Single Injection Chris Chrostowski, M.D. 06/26/2019 Allergy Injection Single Injection Chris Chrostowski, [...] 05/22/2019 Allergy Injection Single Injection Chris Chrostowski, M.D. 05/16/2019 Allergy Injection Single Injection Chris Chrostowski, M.D. 05/08/2019 Allergy Injection Single Injection Chris Chrostowski, M.DArsh 05/04/2019 Allergy Injection Single Injection Chris Chrostowski, M.D. 05/01/2019 Allergy Injection Single Injection Chris Chrostowski, M.D. 04/27/2019 Allergy Injection Single Injection Chris Chrostowski, M.DArsh 04/24/2019 Allergy Injection Single Injection Chris Chrostowski, M.D. 04/17/2019 Allergy Injection Single Injection Chris Chrostowski, M.D. 04/13/2019 Allergy Injection Single Injection Chris Chrostowski, M.D. 04/10/2019 Allergy Injection Single Injection Chris Chrostowski, M.D. 04/06/2019 Allergy Injection Single Injection Chris Chrostowski, M.D. 04/03/2019 Allergy Injection Single Injection Chris Chrostowski, M.DArsh 03/30/2019 Allergy Injection Single Injection Chris Chrostowski, M.D. 03/27/2019 Allergy Injection Single Injection Chris Chrostowski, M.D. 03/24/2019 Allergy Injection Single Injection Chris Chrostowski, M.DArsh 03/20/2019 Allergy Injection Single Injection Chris Chrostshanti, M.DArsh 03/17/2019 Allergy Injection Single Injection SEDA Davison 03/13/2019 Allergy Injection Single Injection Chris Falk M.D. 03/13/2019 Allergy Injection Single Injection SEDA [...] Information Available Procedures Date Code Description Status 05/27/2020 30280 Allergy Injection Single Complet ed 05/06/2020 12862 Allergy Injection Single Complet ed 04/17/2020 01287 Allergy Antigens Single Or Multi ple Completed 04/15/2020 29655 Allergy Injection Single Complet ed 04/04/2020 44323 Bronchodilation Resp onsiveness Spirometry Pre/Post Bronchodil Adm Completed 03/25/2020 57184 Allergy Injection Single Complet ed 03/04/2020 20396 Allergy Injection Single Complet ed 02/12/2020 79720 Allergy Injection Single Complet ed 01/22/2020 98698 Allergy Injection Single Complet ed 01/01/2020 27413 Allergy Injection Single Complet ed 12/11/2019 07839 Allergy Injection Single Complet ed Medical Devices Description No Information Available Encounters Type Date Location Provider Dx Diagnosis Office Visit 04/04/2020 3:30p Main Office hCris Falk M.D. J45.30 Mild persistent asthma, uncomplicated J30.89 Other allergic rhinitis J30.81 Allergic rhinitis due to ani mal (cat) (dog) hair and dander Assessments Date Code Description Provider 05/27/2020 J30.81 Allergic rhinitis due to animal (cat) (dog) hair and dander Chris Falk M.D. 05/27/2020 J30.89 Other allergic rhinitis Chris Falk M.D. Plan of Treatment Future Appointment(s):* 06/17/2020 11:20 am - Allergy Injection at Main Office [...]
--- OUTSIDE RECORDS SUMMARY | 2020-07-04 07:31 | CCD | Continuity of Care Document ---
Author Author Felicia FALK M.D. Organization Unknown Address [address], [address], [address] [place] [address] Phone [phone] Care Team Providers Care Microarray Specialist Name Role Phone Schuyler, Osiris VYAS Unavailable [...] Chris Falk M.D. 04/04/2020 Flonase Sensimist 27 .5mcg/[place] Suspension 2 sprays each nostril every night [...] Allergy Injection Single Injection Chrisglenda Falk M.D. 03/25/2020 Allergy Injection Single Injection Chris Constance Falk 03/04/2020 Allergy Injection Single Injection Chris Rosario, Constance 02/12/2020 Allergy Injection Single Injection Chris Constance Falk 01/22/2020 Allergy Injection Single Injection Chris Rosario, Constance 01/01/2020 Allergy Injection Single Injection Chris Constance Falk 12/11/2019 Allergy Injection Single Injection Chris Constance Falk 11/20/2019 Allergy Injection Single Injection Chris Rosario, Constance 10/31/2019 Allergy Injection Single Injection Chris Rosario, Constance 10/11/2019 Allergy Injection Single Injection Chris Constance Falk 09/21/2019 Allergy Injection Single Injection Chris Maguiostshanti, Constance 08/29/2019 Allergy Injection Single Injection OPAL EscuderoP-C 08/10/2019 Allergy Injection Single Injection Chris Constance Falk 08/10/2019 Allergy Injection Single Injection Chris Maguiostshanti, Constance 07/20/2019 Allergy Injection Single Injection Chris Chrostshanti, KarineDArsh 07/06/2019 Allergy Injection Single Injection Chris Maguiostshanti, KarineDArsh 07/03/2019 Allergy Injection Single Injection Chris Maguiostshanti, MArshDArsh 06/29/2019 Allergy Injection Single Injection Chris Chrostshanti, MArshDArsh 06/26/2019 Allergy Injection Single Injection Chris Rosario, KarineDArsh 06/22/2019 Allergy Injection Single Injection Chris Rosario, MArshDArsh 06/19/2019 Allergy Injection Single Injection Chris Chrostshanti, M.D. 06/12/2019 Allergy Injection Single Injection Chris Chrostshanti, M.D. 06/09/2019 Allergy Injection Single Injection Chris Chrostowski, M.D. 06/01/2019 Allergy Injection Single Injection Chris Chrostowski, M.D. 05/29/2019 Allergy Injection Single Injection Chris Chrostshanti, M.D. 05/25/2019 Allergy Injection Single Injection Chris Chrostshanti, M.D. 05/22/2019 Allergy Injection Single Injection Chris Chrostowski, M.D. 05/16/2019 Allergy Injection Single Injection Chris Chrostshanti, M.D. 05/08/2019 Allergy Injection Single Injection Chris Chrostshanti, M.DArsh 05/04/2019 Allergy Injection Single Injection Chris Maguiostshanti, M.DArsh 05/01/2019 Allergy Injection Single Injection Chris Maguiostshanti, M.DArsh 04/27/2019 Allergy Injection Single Injection Chris Maguiostshanti, M.DArsh 04/24/2019 Allergy Injection Single Injection Hcris Chrostshanti, M.D. 04/17/2019 Allergy Injection Single Injection Chris Maguiostshanti, M.D. 04/13/2019 Allergy Injection Single Injection Chris Maguiostshanti, M.DArsh 04/10/2019 Allergy Injection Single Injection Chris Chrostshanti, M.D. 04/06/2019 Allergy Injection Single Injection Chris Chrostshanti, M.D. 04/03/2019 Allergy Injection Single Injection Chris Maguiostshanti, M.DArsh 03/30/2019 Allergy Injection Single Injection Chris Chrostshanti, M.D. 03/27/2019 Allergy Injection Single Injection Chris Chrostshanti, M.DArsh 03/24/2019 Allergy Injection Single Injection Chris Chrostshanti, M.DArsh 03/20/2019 Allergy Injection Single Injection Chris Chrostshanti, M.DArsh 03/17/2019 Allergy Injection Single Injection DIONE Davison-C 03/13/2019 Allergy Injection Single Injection Chris Rosario, M.DArsh 03/13/2019 Allergy Injection Single Injection DIONE Davison-C 03/09/2019 Allergy Injection Single Injection Chris Rosario, M.D. 03/09/2019 Allergy Injection Single Injection [place] DIONE Tapia-Natividad 03/06/2019 Allergy Injection Single Injection Chris Falk [...] Information Available Procedures Date Code Description Status 04/04/2020 91041 Bronchodilation Resp onsiveness Spirometry Pre/Post Bronchodil Adm Completed 03/25/2020 40899 Allergy Injection Single Complet ed 03/04/2020 86347 Allergy Injection Single Complet ed 02/12/2020 59232 Allergy Injection Single Complet ed 01/22/2020 24157 Allergy Injection Single Complet ed 01/01/2020 97473 Allergy Injection Single Complet ed 12/11/2019 58626 Allergy Injection Single Complet ed 11/20/2019 83230 Allergy Injection Single Complet ed 11/02/2019 81761 Allergy Antigens Single Or Multi ple Completed 10/31/2019 26568 Allergy Injection Single Complet ed 10/11/2019 80745 Allergy Injection Single Complet ed Medical Devices Description No Information Available Encounters Type Date Location Provider Dx Diagnosis Office Visit 04/04/2020 3:30p Main Office Chris Falk M.D. J45.30 Mild persistent asthma, uncomplicated J30.89 Other allergic rhinitis J30.81 Allergic rhinitis due to ani mal (cat) (dog) hair and dander Assessments Date Code Description Provider 04/04/2020 J45.30 Mild persistent asthma, uncompli cated Chris Falk M.D. 04/04/2020 J30.89 Allergic rhinitis due to dust mi carloz. Chris Falk M.D. 04/04/2020 J30.81 Allergic rhinitis due to animal (cat) hair and dander Chris Falk M.D. Plan of Treatment Future Appointment(s):* 10/07/2020 3:00 pm - Chris Falk M.D. at Main Office * 04/15/2020 9:20 am - Allergy Injection at Main Office 04/04/2020 - Chris Falk [...]
--- OUTSIDE RECORDS SUMMARY | 2020-07-04 07:31 | CCD | Continuity of Care Document ---
Author Author Felicia FALK M.D. Organization Unknown Address [address], [place] [address] Phone [phone] Care Team Providers Care Director Supplier Quality Name Role Phone Schuyler, Osiris VYAS Unavailable [...] Chris Falk M.D. 04/04/2020 Flonase Sensimist 27 .5mcg/[place] Suspension 2 sprays each nostril every night [...] Provider Date Allergy Injection Single Injection Chris Falk M.D. 06/17/2020 Allergy Injection Single Injection Chrisglenda Falk M.D. 05/27/2020 Allergy Injection Single Injection Chrisglenda Falk M.D. 05/06/2020 Allergy Injection Single Injection Chrisglenda Falk M.D. 04/15/2020 Allergy Injection Single Injection Chrisglenda Falk M.D. 03/25/2020 Allergy Injection Single Injection Chrisglenda Falk M.D. 03/04/2020 Allergy Injection Single Injection Chrisglenda Falk M.D. 02/12/2020 Allergy Injection Single Injection Chris Constance Falk 01/22/2020 Allergy Injection Single Injection Chris Constance Falk 01/01/2020 Allergy Injection Single Injection Chrisglenda Falk M.D. 12/11/2019 Allergy Injection Single Injection Chris Constance Falk 11/20/2019 Allergy Injection Single Injection Chris Constance Falk 10/31/2019 Allergy Injection Single Injection Chris Constance Falk 10/11/2019 Allergy Injection Single Injection Chris Constance Falk 09/21/2019 Allergy Injection Single Injection Chris Constance Falk 08/29/2019 Allergy Injection Single Injection SEDA Escudero 08/10/2019 Allergy Injection Single Injection Chris Constance Falk 08/10/2019 Allergy Injection Single Injection Chris Constance Falk 07/20/2019 Allergy Injection Single Injection Chris Constance Falk 07/06/2019 Allergy Injection Single Injection Chris Constance Falk 07/03/2019 Allergy Injection Single Injection Chris Chrostowski, M.D. 06/29/2019 Allergy Injection Single Injection Chris Chrostowski, M.D. 06/26/2019 Allergy Injection Single Injection Chris Chrostowski, M.D. 06/22/2019 Allergy Injection Single Injection Chris Chrostowski, M.D. 06/19/2019 Allergy Injection Single Injection Chris Chrostowski, M.D. 06/12/2019 Allergy Injection Single Injection Chris Chrostowski, M.D. 06/09/2019 Allergy Injection Single Injection Chris Chrostowski, M.D. 06/01/2019 Allergy Injection Single Injection Chris Chrostowski, M.DArsh 05/29/2019 Allergy Injection Single Injection Chris Chrostshanti, M.DArsh 05/25/2019 Allergy Injection Single Injection Chris Chrostowski, M.DArsh 05/22/2019 Allergy Injection Single Injection Chris Chrostshanti, M.DArsh 05/16/2019 Allergy Injection Single Injection Chris Chrostshanti, M.DArsh 05/08/2019 Allergy Injection Single Injection Chris Chrostowski, M.DArsh 05/04/2019 Allergy Injection Single Injection Chris Chrostshanti, M.DArsh 05/01/2019 Allergy Injection Single Injection Chris Chrostshanti, M.DArsh 04/27/2019 Allergy Injection Single Injection Chris Chrostowski, M.DArsh 04/24/2019 Allergy Injection Single Injection Chris Chrostshanti, M.DArsh 04/17/2019 Allergy Injection Single Injection Chris Chrostshanti, M.DArsh 04/13/2019 Allergy Injection Single Injection Chris Chrostowski, M.DArsh 04/10/2019 Allergy Injection Single Injection Chris Chrostshanti, M.DArsh 04/06/2019 Allergy Injection Single Injection Chris Chrostshanti, M.DArsh 04/03/2019 Allergy Injection Single Injection Chris Chrostowski, M.DArsh 03/30/2019 Allergy Injection Single Injection Chris Chrostowski, M.DArsh 03/27/2019 Allergy Injection Single Injection Chris Chrostshanti, M.DArsh 03/24/2019 Allergy Injection Single Injection Chris Chrostshanti, M.DArsh 03/20/2019 Allergy Injection Single Injection Chris Chrostowski, M.D. 03/17/2019 Allergy Injection Single Injection DIONE Davison-C 03/13/2019 Allergy Injection Single Injection Chris Falk M.D. 03/13/2019 Allergy Injection Single Injection DIONE Davison-Natividad 03/09/2019 Allergy Injection Single Injection Chris Falk M.D. 03/09/2019 Allergy Injection Single Injection SEDA Davison 03/06/2019 Allergy Injection Single Injection Chris Falk M.D. 03/06/2019 Allergy Injection Single Injection hCris Falk M.D. 03/02/2019 Allergy Injection Single Injection [...] Information Available Procedures Date Code Description Status 06/17/2020 57298 Allergy Injection Single Complet ed 05/27/2020 39848 Allergy Injection Single Complet ed 05/06/2020 34199 Allergy Injection Single Complet ed 04/17/2020 81143 Allergy Antigens Single Or Multi ple Completed 04/15/2020 43270 Allergy Injection Single Complet ed 04/04/2020 31913 Bronchodilation Resp onsiveness Spirometry Pre/Post Bronchodil Adm Completed 03/25/2020 41570 Allergy Injection Single Complet ed 03/04/2020 18244 Allergy Injection Single Complet ed 02/12/2020 04247 Allergy Injection Single Complet ed 01/22/2020 72192 Allergy Injection Single Complet ed 01/01/2020 70860 Allergy Injection Single Complet ed Medical Devices Description No Information Available Encounters Type Date Location Provider Dx Diagnosis Office Visit 04/04/2020 3:30p Main Office Chris Falk M.D. J45.30 Mild persistent asthma, uncomplicated J30.89 Other allergic rhinitis J30.81 Allergic rhinitis due to ani mal (cat) (dog) hair and dander Assessments Date Code Description Provider 06/17/2020 J30.81 Allergic rhinitis due to animal (cat) (dog) hair and dander Chris Falk M.D. 06/17/2020 J30.89 Other allergic rhinitis Chris Falk M.D. Plan of Treatment Future Appointment(s):* 07/08/2020 1:20 pm - Allergy Injection at Main [...]
--- OUTSIDE RECORDS SUMMARY | 2020-07-04 07:31 | CCD | Continuity of Care Document ---
Author Author Felicia FALK M.D. Organization Unknown Address [address], [address], [place] [address] Phone [phone] Care Team Providers Care Parent Partner Name Role Phone Schuyler, Osiris VYAS Unavailable [...] Chris Falk M.D. 04/04/2020 Flonase Sensimist 27 .5mcg/[place] Suspension 2 sprays each nostril every night [...] Chrostshanti, M.D. 03/20/2019 Allergy Injection Single Injection Chris [...] Information Available Procedures Date Code Description Status 04/17/2020 34777 Allergy Antigens Single Or Multi ple Completed 04/15/2020 16636 Allergy Injection Single Complet ed 04/04/2020 11510 Bronchodilation Resp onsiveness Spirometry Pre/Post Bronchodil Adm Completed 03/25/2020 00056 Allergy Injection Single Complet ed 03/04/2020 39020 Allergy Injection Single Complet ed 02/12/2020 23065 Allergy Injection Single Complet ed 01/22/2020 45876 Allergy Injection Single Complet ed 01/01/2020 21592 Allergy Injection Single Complet ed 12/11/2019 74970 Allergy Injection Single Complet ed 11/20/2019 93338 Allergy Injection Single Complet ed 11/02/2019 99176 Allergy Antigens Single Or Multi ple Completed 10/31/2019 31344 Allergy Injection Single Complet ed Medical Devices Description No Information Available Encounters Type Date Location Provider Dx Diagnosis Office Visit 04/04/2020 3:30p Main Office Chris Falk M.D. J45.30 Mild persistent asthma, uncomplicated J30.89 Other allergic rhinitis J30.81 Allergic rhinitis due to ani mal (cat) (dog) hair and dander Assessments Date Code Description Provider 04/17/2020 J30.81 Allergic rhinitis due to animal (cat) (dog) hair and dander Chris Falk M.D. 04/17/2020 J30.89 Other allergic rhinitis Chris Falk M.D. [...]
--- OUTSIDE RECORDS SUMMARY | 2020-07-04 07:32 | CCD ---
Author Author [facility] Organization [facility] Address Unknown Phone Unavailable Care Team Providers Care Rail Setter Name Role Phone Rosa GOFF MD Unavailable Unavailable LAX, Rosa CAMPOS MD Unavailable Unavailable LAX, Rosa CAMPOS MD Unavailable Unavailable LAX, Rosa CAMPOS MD Unavailable Unavailable LAX, Rosa CAMPOS MD Unavailable Unavailable LAX, Rosa CAMPOS MD Unavailable Unavailable LAX, Rosa CAMPOS MD Unavailable Unavailable LAX, Rosa CAMPOS MD Unavailable Unavailable LAX, Rosa CAMPOS MD Unavailable Unavailable LAX, Rosa CAMPOS MD Unavailable Unavailable LAX, Rosa CAMPOS MD Unavailable Unavailable LAX, Rosa CAMPOS MD Unavailable Unavailable LAX, Rosa CAMPOS MD Unavailable Unavailable LAX, Rosa CAMPOS MD Unavailable Unavailable LAX, Rosa CAMPOS MD Unavailable Unavailable LAX, Rosa CAMPOS MD Unavailable Unavailable LAX, Rosa CAMPOS MD Unavailable Unavailable LAX, Rosa CAMPOS MD Unavailable Unavailable LAX, Rosa CAMPOS MD Unavailable Unavailable LAX, Rosa CAMPOS MD Unavailable Unavailable LAX, Rosa CAMPOS MD Unavailable Unavailable LAX, Rosa CAMPOS MD Unavailable Unavailable LAX, Rosa CAMPOS MD Unavailable Unavailable LAX, Rosa CAMPOS MD Unavailable Unavailable LAX, Rosa CAMPOS MD Unavailable Unavailable LAX, Rosa CAMPOS MD Unavailable Unavailable LAX, Rosa CAMPOS MD Unavailable Unavailable LAX, Rosa CAMPOS MD Unavailable Unavailable LAX, Rosa CAMPOS MD Unavailable Unavailable LAX, Rosa CAMPOS MD Unavailable Unavailable LAX, Rosa CAMPOS MD Unavailable Unavailable LAX, Rosa CAMPOS MD Unavailable Unavailable LAX, Rosa CAMPOS MD Unavailable Unavailable LAX, Rosa CAMPOS MD Unavailable Unavailable LAX, Rosa CAMPOS MD Unavailable Unavailable LAX, Rosa CAMPOS MD Unavailable Unavailable LAX, Rosa CAMPOS MD Unavailable Unavailable LAX, Rosa CAMPOS MD Unavailable Unavailable LAX, Rosa CAMPOS MD Unavailable Unavailable LAX, Rosa CAMPOS MD Unavailable Unavailable LAX, Rosa CAMPOS MD Unavailable Unavailable LAX, Rosa CAMPOS MD Unavailable Unavailable LAX, Rosa CAMPOS MD Unavailable Unavailable LAX, Rosa CAMPOS MD Unavailable Unavailable LAX, Rosa CAMPOS MD Unavailable Unavailable LAX, Rosa CAMPOS MD Unavailable Unavailable LAX, Rosa CAMPOS MD Unavailable Unavailable LAX, Rosa CAMPOS MD Unavailable Unavailable Mandappa, Payton CASAC Unavailable Unavailable Mandappa, Payton CASAC Unavailable Unavailable Mandappa, Payton CASAC Unavailable Unavailable Mandappa, Payton CASAC Unavailable Unavailable HOOK, R LISA DPM Unavailable Unavailable HOOK, R LISA DPM Unavailable Unavailable HOOK, R LISA DPM Unavailable Unavailable HOOK, R LISA DPM Unavailable Unavailable HOOK, R LISA DPM Unavailable Unavailable HOOK, R LISA DPM Unavailable Unavailable HOOK, R LISA DPM Unavailable Unavailable HOOK, R LISA DPM Unavailable Unavailable HOOK, R LISA DPM Unavailable Unavailable HOOK, R LISA DPM Unavailable Unavailable HOOK, R LISA DPM Unavailable Unavailable HOOK, R LISA DPM Unavailable Unavailable HOOK, R LISA DPM Unavailable Unavailable HOOK, R LISA DPM Unavailable Unavailable HOOK, R LISA DPM Unavailable Unavailable HOOK, R LISA DPM Unavailable Unavailable HOOK, R LISA DPM Unavailable Unavailable HOOK, R LISA DPM Unavailable Unavailable HOOK, R LISA DPM Unavailable Unavailable HOOK, R LISA DPM Unavailable Unavailable HOOK, R LISA DPM Unavailable Unavailable HOOK, R LISA DPM Unavailable Unavailable HOOK, R LISA DPM Unavailable Unavailable HOOK, R LISA DPM Unavailable Unavailable HOOK, R LISA DPM Unavailable Unavailable HOOK, R LISA DPM Unavailable Unavailable HOOK, R LISA DPM Unavailable Unavailable HOOK, R LISA DPM Unavailable Unavailable HOOK, R LISA DPM Unavailable Unavailable HOOK, R LISA DPM Unavailable Unavailable HOOK, R LISA DPM Unavailable Unavailable HOOK, R LISA DPM Unavailable Unavailable HOOK, R LISA DPM Unavailable Unavailable HOOK, R LISA DPM Unavailable Unavailable HOOK, R LISA DPM Unavailable Unavailable HOOK, R LISA DPM Unavailable Unavailable HOOK, R LISA DPM Unavailable Unavailable HOOK, R LISA DPM Unavailable Unavailable HOOK, R LISA DPM Unavailable Unavailable HOOK, R LISA DPM Unavailable Unavailable HOOK, R LISA DPM Unavailable Unavailable HOOK, R LISA DPM Unavailable Unavailable HOOK, R LISA DPM Unavailable Unavailable HOOK, R LISA DPM Unavailable Unavailable HOOK, R LISA DPM Unavailable Unavailable HOOK, R LISA DPM Unavailable Unavailable HOOK, R LISA DPM Unavailable Unavailable HOOK, R LISA DPM Unavailable Unavailable HOOK, R LISA DPM Unavailable Unavailable HOOK, R LISA DPM Unavailable Unavailable HOOK, R LISA DPM Unavailable Unavailable HOOK, R LISA DPM Unavailable Unavailable HOOK, R LISA DPM Unavailable Unavailable HOOK, R LISA DPM Unavailable Unavailable HOOK, R LISA DPM Unavailable Unavailable HOOK, R LISA DPM Unavailable Unavailable HOOK, R LISA DPM Unavailable Unavailable HOOK, R LISA DPM Unavailable Unavailable HOOK, R LISA DPM Unavailable Unavailable CHROSTOWSKI, KRISHAN MD Unavailable Unavailable CHROSTOWSKI, KRISHAN MD Unavailable Unavailable CHROSTOWSKI, KRISHAN MD Unavailable Unavailable CHROSTOWSKI, KRISHAN MD Unavailable Unavailable CHROSTOWSKI, KRISHAN MD Unavailable Unavailable CHROSTOWSKI, KRISHAN MD Unavailable Unavailable CHROSTOWSKI, KRISHAN MD Unavailable Unavailable CHROSTOWSKI, KRISHAN MD Unavailable Unavailable CHROSTOWSKI, KRISHAN MD Unavailable Unavailable CHROSTOWSKI, KRISHAN MD Unavailable Unavailable CHROSTOWSKI, KRISHAN MD Unavailable Unavailable CHROSTOWSKI, KRISHAN MD Unavailable Unavailable CHROSTOWSKI, KRISHAN MD Unavailable Unavailable CHROSTOWSKI, KRISHAN MD Unavailable Unavailable CHROSTOWSKI, KRISHAN MD Unavailable Unavailable CHROSTOWSKI, KRISHAN MD Unavailable Unavailable CHROSTOWSKI, KRISHAN MD Unavailable Unavailable CHROSTOWSKI, KRISHAN MD Unavailable Unavailable CHROSTOWSKI, KRISHAN MD Unavailable Unavailable CHROSTOWSKI, KRISHAN MD Unavailable Unavailable CHROSTOWSKI, KRISHAN MD Unavailable Unavailable CHROSTOWSKI, KRISHAN MD Unavailable Unavailable CHROSTOWSKI, KRISHAN MD Unavailable Unavailable CHROSTOWSKI, KRISHAN MD Unavailable Unavailable CHROSTOWSKI, KRISHAN MD Unavailable Unavailable CHROSTOWSKI, KRISHAN MD Unavailable Unavailable CHROSTOWSKI, KRISHAN MD Unavailable Unavailable CHROSTOWSKI, KRISHAN MD Unavailable Unavailable CHROSTOWSKI, KRISHAN MD Unavailable Unavailable CHROSTOWSKI, KRISHAN MD Unavailable Unavailable CHROSTOWSKI, KRISHAN MD Unavailable Unavailable CHRKRISHAN ROSEN MD Unavailable Unavailable CHROSTKRISHAN SILVA MD Unavailable Unavailable CHROSTKRISHAN SILVA MD Unavailable Unavailable CHROSTKRISHAN SILVA MD Unavailable Unavailable CHROSTKRISHAN SILVA MD Unavailable Unavailable CHROSTKRISHAN SILVA MD Unavailable Unavailable CHROSTKRISHAN SILVA MD Unavailable Unavailable CHROSTKRISHAN SILVA MD Unavailable Unavailable CHROSTKRISHAN SILVA MD Unavailable Unavailable RING, K SHAHEEN PA Unavailable Unavailable RING, K SHAHEEN PA Unavailable Unavailable RING, K SHAHEEN PA Unavailable Unavailable RING, K SHAHEEN PA Unavailable Unavailable RING, K SHAHEEN PA Unavailable Unavailable RING, K SHAHEEN PA Unavailable Unavailable RING, K SHAHEEN PA Unavailable Unavailable RING, K SHAHEEN PA Unavailable Unavailable RING, K SHAHEEN PA Unavailable Unavailable RING, K SHAHEEN PA Unavailable Unavailable RING, K SHAHEEN PA Unavailable Unavailable RING, K SHAHEEN PA Unavailable Unavailable RING, K SHAHEEN PA Unavailable Unavailable RING, K SHAHEEN PA Unavailable Unavailable RING, K SHAHEEN PA Unavailable Unavailable RING, K SHAHEEN PA Unavailable Unavailable RING, K SHAHEEN PA Unavailable Unavailable RING, K SHAHEEN PA Unavailable Unavailable RING, K SHAHEEN PA Unavailable Unavailable RING, K SHAHEEN PA Unavailable Unavailable Goessling, Tanisha Unavailable Unavailable Goessling, Tanisha Unavailable Unavailable Goessling, Tanisha Unavailable Unavailable Goessling, Tanisha Unavailable Unavailable Goessling, Tanisha Unavailable Unavailable Goessling, Tanisha Unavailable Unavailable Goessling, Tanisha Unavailable Unavailable Goessling, Tanisha Unavailable Unavailable Goessling, Tanisha Unavailable Unavailable Goessling, Tanisha Unavailable Unavailable Goessling, Tanisha Unavailable Unavailable Goessling, Tanisha Unavailable Unavailable Goessling, Tanisha Unavailable Unavailable Goessling, Tanisha Unavailable Unavailable LESLIE ALMANZAR MD Unavailable Unavailable LESLIE ALMANZAR MD Unavailable Unavailable LESLIE ALMANZAR MD Unavailable Unavailable LESLIE ALMANZAR MD Unavailable Unavailable LESLIE ALMANZAR MD Unavailable Unavailable LESLIE ALMANZAR MD Unavailable Unavailable LESLIE ALMANZAR MD Unavailable Unavailable LESLIE ALMANZAR MD Unavailable Unavailable LESLIE ALMANZAR MD Unavailable Unavailable LESLIE ALMANZAR MD Unavailable Unavailable LESLIE ALMANZAR MD Unavailable Unavailable LESLIE ALMANZAR MD Unavailable Unavailable LESLIE ALMANZAR MD Unavailable Unavailable LESLIE ALMANZAR MD Unavailable Unavailable LESLIE ALMANZAR MD Unavailable Unavailable LESLIE ALMANZAR MD Unavailable Unavailable LESLIE ALMANZAR MD Unavailable Unavailable LESLIE ALMANZAR MD Unavailable Unavailable LESLIE ALMANZAR MD Unavailable Unavailable LESLIE ALMANZAR MD Unavailable Unavailable LESLIE ALMANZAR MD Unavailable Unavailable LESLIE ALMANZAR MD Unavailable Unavailable LESLIE ALMANZAR MD Unavailable Unavailable LESLIE ALMANZAR MD Unavailable Unavailable LESLIE ALMANZAR MD Unavailable Unavailable LESLIE ALMANZAR MD Unavailable Unavailable LESLIE ALMANZAR MD Unavailable Unavailable LESLIE ALMANZAR MD Unavailable Unavailable LESLIE ALMANZAR MD Unavailable Unavailable LESLIE ALMANZAR MD Unavailable Unavailable LESLIE ALMANZAR MD Unavailable Unavailable LESLIE ALMANZAR MD Unavailable Unavailable LESLIE ALMANZAR MD Unavailable Unavailable LESLIE ALMANZAR MD Unavailable Unavailable LESLIE ALMANZAR MD Unavailable Unavailable LESLIE ALMANZAR MD Unavailable Unavailable LESLIE ALMANZAR MD Unavailable Unavailable LESLIE ALMANZAR MD Unavailable Unavailable LESLIE ALMANZAR MD Unavailable Unavailable LESLIE ALMANZAR MD Unavailable Unavailable LESLIE ALMANZAR MD Unavailable Unavailable LESLIE ALMANZAR MD Unavailable Unavailable LESLIE ALMANZAR MD Unavailable Unavailable LESLIE ALMANZAR MD Unavailable Unavailable LESLIE ALMANZAR MD Unavailable Unavailable LESLIE ALMANZAR MD Unavailable Unavailable LESLIE ALMANZAR MD Unavailable Unavailable LESLIE ALMANZAR MD Unavailable Unavailable LESLIE ALMANZAR MD Unavailable Unavailable LESLIE ALMANZAR MD Unavailable Unavailable LESLIE ALMANZAR MD Unavailable Unavailable LESLIE ALMANZAR MD Unavailable Unavailable LESLIE ALMANZAR MD Unavailable Unavailable LESLIE ALMANZAR MD Unavailable Unavailable LESLIE ALMANZAR MD Unavailable Unavailable LESLIE ALMANZAR MD Unavailable Unavailable LESLIE ALMANZAR MD Unavailable Unavailable LESLIE ALMANZAR MD Unavailable Unavailable LESLIE ALMANZAR MD Unavailable Unavailable LESLIE ALMANZAR MD Unavailable Unavailable LESLIE ALMANZAR MD Unavailable Unavailable LESLIE ALMANZAR MD Unavailable Unavailable LESLIE ALMANZAR MD Unavailable Unavailable LESLIE ALMANZAR MD Unavailable Unavailable LESLIE AMLANZAR MD Unavailable Unavailable LESLIE ALMANZAR MD Unavailable Unavailable LESLIE ALMANZAR MD Unavailable Unavailable LESLIE ALMANZAR MD Unavailable Unavailable LESLIE ALMANZAR MD Unavailable Unavailable LESLIE ALMANZAR MD Unavailable Unavailable LESLIE ALMANZAR MD Unavailable Unavailable LESLIE ALMANZAR MD Unavailable Unavailable LESLIE ALMANZAR MD Unavailable Unavailable LESLIE ALMANZAR MD Unavailable Unavailable Etienne, Scarlet WIRING MECHANIC Unavailable Unavailable Etienne, Scarlet WIRING MECHANIC Unavailable Unavailable Etienne, Scarlet WIRING MECHANIC Unavailable Unavailable Etienne, Scarlet WIRING MECHANIC Unavailable Unavailable Etienne, Scarlet WIRING MECHANIC Unavailable Unavailable Etienne, Scarlet WIRING MECHANIC Unavailable Unavailable Etienne, Scarlet WIRING MECHANIC Unavailable Unavailable Etienne, Scarlet WIRING MECHANIC Unavailable Unavailable Etienne, Scarlet WIRING MECHANIC Unavailable Unavailable Etienne, Scarlet WIRING MECHANIC Unavailable Unavailable Etienne, Scarlet WIRING MECHANIC Unavailable Unavailable RENAE (MARTIN), N SHELLY RPA-C Unavailable Unavailable RENAE (MARTIN), N SHELLY RPA-C Unavailable Unavailable RENAE (MARTIN), N SHELLY RPA-C Unavailable Unavailable RENAE (MARTIN), N SHELLY RPA-C Unavailable Unavailable RENAE (MARTIN), N SHELLY RPA-C Unavailable Unavailable RENAE (MARTIN), N SHELLY RPA-C Unavailable Unavailable RENAE (MARTIN), N SHELLY RPA-C Unavailable Unavailable RENAE (MARTIN), N SHELLY RPA-C Unavailable Unavailable RENAE (MARTIN), N SHELLY RPA-C Unavailable Unavailable RENAE (MARTIN), N SHELLY RPA-C Unavailable Unavailable RENAE (MARTIN), N SHELLY RPA-C Unavailable Unavailable RENAE (MARTIN), N SHELLY RPA-C Unavailable Unavailable RENAE (MARTIN), N SHELLY RPA-C Unavailable Unavailable RENAE (MARTIN), N SHELLY RPA-C Unavailable Unavailable RENAE (MARTIN), N SHELLY RPA-C Unavailable Unavailable RENAE (MARTIN), N SHELLY RPA-C Unavailable Unavailable RENAE (MARTIN), N SHELLY RPA-C Unavailable Unavailable RENAE (MARTIN), N SHELLY RPA-C Unavailable Unavailable RENAE (MARTIN), N SHELLY RPA-C Unavailable Unavailable RENAE (MARTIN), N SHELLY RPA-C Unavailable Unavailable RENAE (MARTIN), N SHELLY RPA-C Unavailable Unavailable RENAE (MARTIN), N SHELLY RPA-C Unavailable Unavailable RENAE (MARTIN), N SHELLY RPA-C Unavailable Unavailable RENAE (MARTIN), N SHELLY RPA-C Unavailable Unavailable RENAE (MARTIN), N SHELLY RPA-C Unavailable Unavailable RENAE (MARTIN), N SHELLY RPA-C Unavailable Unavailable RENAE (MARTIN), N SHELLY RPA-C Unavailable Unavailable RENAE (MARTIN), N SHELLY RPA-C Unavailable Unavailable RENAE (MARTIN), N SHELLY RPA-C Unavailable Unavailable RENAE (MARTIN), N SHELLY RPA-C Unavailable Unavailable RENAE (MARTIN), N SHELLY RPA-C Unavailable Unavailable RENAE (MARTIN), N SHELLY RPA-C Unavailable Unavailable RENAE (MARTIN), N SHELLY RPA-C Unavailable Unavailable RENAE (MARTIN), N SHELLY RPA-C Unavailable Unavailable RENAE (MARTIN), N SHELLY RPA-C Unavailable Unavailable RENAE (MARTIN), N SHELLY RPA-C Unavailable Unavailable RENAE (MARTIN), N SHELLY RPA-C Unavailable Unavailable RENAE (MARTIN), N SHELLY RPA-C Unavailable Unavailable RENAE (MARTIN), N SHELLY RPA-C Unavailable Unavailable RENAE (MARTIN), N SHELLY RPA-C Unavailable Unavailable RENAE (MARTIN), N SHELLY RPA-C Unavailable Unavailable RENAE (MARTIN), N SHELLY RPA-C Unavailable Unavailable RENAE (MARTIN), N SHELLY RPA-C Unavailable Unavailable RENAE (MARTIN), N SHELLY RPA-C Unavailable Unavailable RENAE (MARTIN), N SHELLY RPA-C Unavailable Unavailable RENAE (MARTIN), N SHELLY RPA-C Unavailable Unavailable RENAE (MARTIN), N SHELLY RPA-C Unavailable Unavailable RENAE (MARTIN), N SHELLY RPA-C Unavailable Unavailable RENAE (MARTIN), N SHELLY RPA-C Unavailable Unavailable RENAE (MARTIN), N SHELLY RPA-C Unavailable Unavailable RENAE (MARTIN), N SHELLY RPA-C Unavailable Unavailable RENAE (MARTIN), N SHELLY RPA-C Unavailable Unavailable RENAE (MARTIN), N SHELLY RPA-C Unavailable Unavailable LETTIERE, A BETH PA Unavailable Unavailable LETTIERE, A BETH PA Unavailable Unavailable LETTIERE, A BETH PA Unavailable Unavailable LETTIERE, A BETH PA Unavailable Unavailable LETTIERE, A BETH PA Unavailable Unavailable LETTIERE, A BETH PA Unavailable Unavailable LETTIERE, A BETH PA Unavailable Unavailable LETTIERE, A BETH PA Unavailable Unavailable LETTIERE, A BETH PA Unavailable Unavailable LETTIERE, A BETH PA Unavailable Unavailable LETTIERE, A BETH PA Unavailable Unavailable LETTIERE, A BETH PA Unavailable Unavailable LETTIERE, A BETH PA Unavailable Unavailable LETTIERE, A BETH PA Unavailable Unavailable LETTIERE, A BETH PA Unavailable Unavailable LETTIERE, A BETH PA Unavailable Unavailable LETTIERE, A BETH PA Unavailable Unavailable LETTIERE, A BETH PA Unavailable Unavailable LETTIERE, A BETH PA Unavailable Unavailable LETTIERE, A BETH PA Unavailable Unavailable LETTIERE, A BETH PA Unavailable Unavailable LETTIERE, A BETH PA Unavailable Unavailable LETTIERE, A BETH PA Unavailable Unavailable LETTIERE, A BETH PA Unavailable Unavailable LETTIERE, A BETH PA Unavailable Unavailable LETTIERE, A BETH PA Unavailable Unavailable LETTIERE, A BETH PA Unavailable Unavailable LETTIERE, A BETH PA Unavailable Unavailable LETTIERE, A BETH PA Unavailable Unavailable Re-disclosure Warning The records that you are about to access may contain information from federally-assisted alcohol or drug abuse programs. If such information is present, then the following federally mandated warning applies: This information has been disclosed to you from records protected by federal confidentiality rules (42 CFR part 2). The federal rules prohibit you from making any further disclosure of this information unless further disclosure is expressly permitted by the written consent of the person to whom it pertains or as otherwise permitted by 42 CFR part 2. A general authorization for the release of medical or other information is NOT sufficient for this purpose. The Federal rules restrict any use of the information to criminally investigate or prosecute any alcohol or drug abuse patient.The records that you are about to access may contain highly sensitive health information, the redisclosure of which is protected by Article 27-F of the [facility] Public [facility] law. If you continue you may have access to information: Regarding HIV / AIDS; Provided by facilities licensed or operated by the [facility] Office of Mental Health; or Provided by the [facility] Office for People With Developmental Disabilities. If such information is present, then the following [facility] mandated warning applies: This information has been disclosed to you from confidential records which are protected by state law. State law prohibits you from making any further disclosure of this information without the specific written consent of the person to whom it pertains, or as otherwise permitted by law. Any unauthorized further disclosure in violation of state law may result in a fine or assisted sentence or both. A general authorization for the release of medical or other information is NOT sufficient authorization for further disc losure. Allergies and Adverse Reactions Type Description Substance Reaction Status Data Source(s ) Amoxicillin Amoxicillin Amoxicillin 80 MG/ML Oral Suspension Rash Active eCW1 ([facility]) Betadine Betadine Povidone-Iodine 50 MG/ML Topical Thornton [B etadine] Rash Active eCW1 ([facility]) Erythromycin Erythromycin Erythromycin 500 MG Delayed Rele ase Oral Tablet sever abdominal cramps Active eCW1 ([facility]) Family History Family Member Name Family Member Gender Family Member Status Date o f Status Description Data Source(s) Unknown Unknown Problem [facility] ([facility]) Unknown Male Problem [facility] ([facility] Encounters Encounter Providers Location Date Indications Data Source(s ) Outpatient Attender: KRISHAN FALK MD Main Office 04/04/2020 03:30:00 PM EDT [facility] ([facility]) Outpatient Attender: Scarlet rivas 02/17/2020 09:20:00 AM EDT [facility] ([facility]) Outpatient Attender: LISA SAMUELS DPMReferrer: SHLELY WIGGINS ([place]) [facility]- 02/07/2020 03:32:53 PM EDT [facility] Outpatient Attender: LISA SAMUELS DPMReferrer: [facility] 01/09/2020 08:56:28 AM EDT [facility] Recurring Patient Attender: LISA SAMUELS DPM Referrer: SHELLY MACDONALD ([place]) [facility] 01/08/2020 08:16:52 AM EDT [facility] Recurring Patient Attender: LESLIE ALMANZAR MDReferrer: Payton ballesteros CASAC 01/04/2020 09:54:28 AM EDT [facility] Outpatient Attender: BETH montgomery 01/04/2020 08:10:00 AM EDT [facility] ([facility]) Outpatient Attender: KRISHAN FALK MD Main Office 10/04/2019 03:45:00 PM EDT [facility] ([facility]) Outpatient Attender: Tanisha [place] 07/26/2019 12:00:[address] [facility] [place] [address] [facility] [address] 05/15/2019 12:00:00 AM EST eCW1 ([facility]) Outpatient Attender: BETH GOFF MD 05/15/2019 12:00:00 AM [facility] Outpatient Attender: Tanisha [place] 05/10/2019 12:00:00 A [facility] Outpatient Attender: SHAHEEN Aguilar 05/08/2019 08:30:00 AM EST [facility] ([facility] [place] [address] [facility] [address] 05/08/2019 12:00:00 AM EST eCW1 ([facility]) Medications Medication Brand Name Start Date Product Form Dose Route Admi nistrative Instructions Pharmacy Instructions Status Indications Reaction Description Data Source(s) Allergy Injection Single 06/17/2020 12:00:00 AM EST completed [facility] ([facility]) Medication administered onsite 5 mg 06/13/2020 12:00:00 AM EST tablet,delayed release (DR/EC) 4 TAKE 4 TABLETS BY MOUTH TOGETHER PER BOWEL PREP INSTRUCTIONS TAKE 4 TABLETS BY MOUTH TOGETHER PER BOWEL PREP INSTRUCTIONS SOLD: 06/15/2020 [facility] 10 mg-3.5 gram -12 gram/160 mL 06/13/2020 12:00:00 AM EST so lution 320 FOLLOW PRE-PROCEDURE INSTRUCTIONS START DAY BEFORE PROCEDURE FOLLOW PRE- PROCEDURE INSTRUCTIONS START DAY BEFORE PROCEDURE SOLD: 06/15/2020 [facility] Allergy Injection Single 05/27/2020 12:00:00 AM EST completed [facility] ([facility]) Medication administered onsite Allergy Injection Single 05/06/2020 12:00:00 AM EST completed [facility] ([facility]) Medication administered onsite Allergy Injection Single 04/15/2020 12:00:00 AM EST completed [facility] ([facility]) Medication administered onsite 160-4.5 mcg/actuation 04/13/2020 12:00:00 AM EDT [facility] aerosol inhaler 10 INHALE TWO PUFFS BY MOUTH TWICE A DAY INHALE TWO PUFFS BY MOUTH TWICE A DAY SOLD: 05/20/2020 [facility] 160-4.5 mcg/actuation 04/13/2020 12:00:00 AM EDT HFA aerosol inhaler 10 INHALE TWO PUFFS BY MOUTH TWICE A DAY INHALE TWO PUFFS BY MOUTH TWICE A DAY SOLD: 06/23/2020 [facility] 160-4.5 mcg/actuation 04/13/2020 12:00:00 AM EDT HFA aerosol inhaler 10 INHALE TWO PUFFS BY MOUTH TWICE A DAY INHALE TWO PUFFS BY MOUTH TWICE A DAY SOLD: 04/15/2020 [facility] 60 ACTUAT Budesonide 0.16 MG/ACTUAT / fo rmoterol fumarate 0.0045 MG/ACTUAT Metered Dose Inhaler Budesonide/Formoterol Fumarate Dihydrate 04/04/2020 12:00:00 AM EDT ORAL active M [facility] ([facility]) Allergy Injection Single 03/25/2020 12:00:00 AM EDT completed [facility] ([facility]) Medication administered onsite Allergy Injection Single 03/04/2020 12:00:00 AM EDT completed [facility] ([facility]) Medication administered onsite 113-14 mcg/actuation 02/29/2020 12:00:00 AM EDT aerosol powdr breath activated 1 INHALE ONE PUFF BY MOUTH TWICE A DAY INHA LE ONE PUFF BY MOUTH TWICE A DAY SOLD: 03/04/2020 [facility] Airduo Respiclick 113/14 Airduo Respiclick 113/14 02/28/2020 12:00: 00 AM EDT ORAL completed [facility] 10,000 unit- 1 mg/mL 02/17/2020 12:00:00 AM EDT drops 10 INSTILL 1 DROP FOUR TIMES A DAY TO THE AFFECTED EYE FOR 5-7 DAYS INSTILL 1 DROP FOUR TIMES A DAY TO THE AFFECTED EYE FOR 5-7 DAYS SOLD: 02/17/2020 [facility] Polymyxin B 45943 UNT/ML / Trimethoprim 1 MG/ML Ophtha lmic Solution Polymyxin B Sulfate/Trimethoprim Sulfate 02/17/2020 12:00:00 AM EDT active [facility] ([facility]) Allergy Injection Single 02/12/2020 12:00:00 AM EDT completed [facility] ([facility]) Medication administered onsite Allergy Injection Single 01/22/2020 12:00:00 AM EDT completed [facility] ([facility]) Medication administered onsite Allergy Injection Single 01/01/2020 12:00:00 AM EDT completed [facility] ([facility]) Medication administered onsite Allergy Injection Single 12/11/2019 12:00:00 AM EDT completed [facility] ([facility]) Medication administered onsite 160-4.5 mcg/actuation 11/30/2019 12:00:00 AM EDT HFA aerosol inhaler 20 INHALE TWO PUFFS BY MOUTH TWICE A DAY INHALE TWO PUFFS BY MOUTH TWICE A DAY SOLD: 12/01/2019 [facility] Allergy Injection Single 11/20/2019 12:00:00 AM EDT completed [facility] ([facility]) Medication administered onsite Allergy Injection Single 10/31/2019 12:00:00 AM EDT completed [facility] ([facility]) Medication administered onsite Allergy Injection Single 10/11/2019 12:00:00 AM EDT completed [facility] ([facility]) Medication administered onsite Allergy Injection Single 09/21/2019 12:00:00 AM EDT completed [facility] ([facility]) Medication administered onsite Allergy Injection Single 08/29/2019 12:00:00 AM EDT completed [facility] ([facility]) Medication administered onsite Allergy Injection Single 08/10/2019 12:00:00 AM EST completed [facility] ([facility]) Medication administered onsite Allergy Injection Single 08/10/2019 12:00:00 AM EST completed [facility] ([facility]) Medication administered onsite Allergy Injection Single 07/20/2019 12:00:00 AM EST completed [facility] ([facility]) Medication administered onsite Allergy Injection Single 07/06/2019 12:00:00 AM EST completed [facility] ([facility]) Medication administered onsite Allergy Injection Single 07/03/2019 12:00:00 AM EST completed [facility] ([facility]) Medication administered onsite Allergy Injection Single 06/29/2019 12:00:00 AM EST completed [facility] ([facility]) Medication administered onsite Famotidine 20 MG Oral Tablet Famotidine 06/27/2019 12:00:00 AM EST ORAL active [facility] ([facility], ) Allergy Injection Single 06/26/2019 12:00:00 AM EST completed [facility] ([facility]) Medication administered onsite Allergy Injection Single 06/22/2019 12:00:00 AM EST completed [facility] ([facility]) Medication administered onsite Allergy Injection Single 06/19/2019 12:00:00 AM EST completed [facility] ([facility]) Medication administered onsite Allergy Injection Single 06/12/2019 12:00:00 AM EST completed [facility] ([facility]) Medication administered onsite Allergy Injection Single 06/09/2019 12:00:00 AM EST completed [facility] ([facility]) Medication administered onsite 40 mg 06/03/2019 12:00:00 AM EST capsule,delayed release (DR/EC) 90 TAKE ONE CAPSULE BY MOUTH EVERY DAY TAKE ONE CAPSULE BY MOUTH EVERY DAY SOLD: 06/05/2019 [facility] 40 mg 06/03/2019 12:00:00 AM EST capsule,delayed release (DR/EC) 90 TAKE ONE CAPSULE BY MOUTH EVERY DAY TAKE ONE CAPSULE BY MOUTH EVERY DAY SOLD: 11/30/2019 [facility] Allergy Injection Single 06/01/2019 12:00:00 AM EST completed [facility] ([facility]) Medication administered onsite Allergy Injection Single 05/29/2019 12:00:00 AM EST completed [facility] ([facility]) Medication administered onsite Allergy Injection Single 05/25/2019 12:00:00 AM EST completed [facility] ([facility]) Medication administered onsite Allergy Injection Single 05/22/2019 12:00:00 AM EST completed [facility] ([facility]) Medication administered onsite Allergy Injection Single 05/16/2019 12:00:00 AM EST completed [facility] ([facility]) Medication administered onsite Allergy Injection Single 05/08/2019 12:00:00 AM EST completed [facility] ([facility]) Medication administered onsite 160-4.5 mcg/actuation 12/19/2018 12:00:00 AM EDT HFA aerosol inhaler 10 INHALE TWO PUFFS BY MOUTH TWICE A DAY INHALE TWO PUFFS BY MOUTH TWICE A DAY SOLD: 10/05/2019 [facility] 160-4.5 mcg/actuation 12/19/2018 12:00:00 AM EDT HFA aerosol inhaler 10 INHALE TWO PUFFS BY MOUTH TWICE A DAY INHALE TWO PUFFS BY MOUTH TWICE A DAY SOLD: 05/12/2019 [facility] Budesonide 0.16 MG/ACTUAT / formoterol f umarate 0.0045 MG/ACTUAT Metered Dose Inhaler Symbicort 160-4.5 mcg/actuation inhalation HFA aerosol inhaler Symbicort 160-4.5 mcg/actuation inhalation HFA aerosol inhaler 12/08/2018 09:00:53 AM EDT 2 puffs completed Symbicort ZACKERY GUAMANWAY ([facility]) Insurance Providers Payer name Policy type / Coverage type Policy ID Covered democrat ID Covered democrat's relationship to garcia Policy Garcia Plan Information UMR [facility] [id number] SP [id number] UMR F [id number] SELF [id number] 800 CARMEN CLAIMS ADMIN N[place] WC W [id number] Empl [id number] WORKERS COMPENSATION GENERIC W [id number] Empl [id number] UMR U [id number] Self [id number] [facility] [id number] [facility] [place] .[id number] ANSI-Commercial [id number] ANSI-Commercial [id number] UMR U [id number] Self [id number] ANSI-Commercial [id number] ANSI-Commercial [id number] ANSI-Commercial [id number] ANSI-Commercial [id number] Umr/c/[employer] (HMO) [id number] Self [id number] ANSI-Commercial [id number] ANSI-Commercial [id number] ANSI-Commercial [id number] ANSI-Commercial [id number] ANSI-Commercial [id number] UMR F [id number] SELF [id number] [employer] [id number] Family Dependent [id number] [employer] / UMR F [id number] SELF [id number] [employer] [id number] SP [id number] [employer] [id number] Self [id number] [employer] Commercial [id number] Family Dependent [id number] [employer] [id number] [id number] [employer] PPO O [id number] S [id number] [employer] (pr) Commercial Family Dependent [id number] Surgeries/Procedures Procedure Description Date Indications Data Source(s) PROF ANGELICA HARTMANNG IMMNTX X W/PRV ALLGIC XTRCS 1 NJX 06/17 12:00:00 AM EST [facility] ([facility]) PROF DOMINGUEZ ALLG IMMNTX X W/PRV ALLGIC XTRCS 1 NJX 05/27 12:00:00 AM EST [facility] ([facility]) PROF ANGELICA HARTMANNG IMMNTX X W/PRV ALLGIC XTRCS 1 NJX 05/06 12:00:00 AM EST [facility] ([facility]) PREPJ& ALLERGEN IMMUNOTHERAPY 1/GROUP EXERCISE CLASS INSTRUCTOR ANTIGEN 04/17/2020 12:00:00 AM EST [facility] ([facility]) PROF ANGELICA HARTMANNG IMMNTX X W/PRV ALLGIC XTRCS 1 NJX 04/15 12:00:00 AM EST [facility] ([facility]) BRNCDILAT RSPSE SPMTRY PRE&POST-BRNCDILAT ADMN 020 12:00:00 AM EDT [facility] ([facility]) PROF ANGELICA HARTMANNG IMMNTX X W/PRV ALLGIC XTRCS 1 NJX 03/25 12:00:00 AM EDT [facility] ([facility]) PROF ANGELICA HARTMANNG IMMNTX X W/PRV ALLGIC XTRCS 1 NJX 03/04 12:00:00 AM EDT [facility] ([facility]) PROF DOMINGUEZ ALLG IMMNTX X W/PRV ALLGIC XTRCS 1 NJX 02/11 12:00:00 AM EDT [facility] ([facility]) PROF ANGELICA HARTMANNG IMMNTX X W/PRV ALLGIC XTRCS 1 NJX 01/21 12:00:00 AM EDT [facility] ([facility]) PROF DOMINGUEZ ALLG IMMNTX X W/PRV ALLGIC XTRCS 1 NJX 12/31 12:00:00 AM EDT [facility] ([facility]) PROF DOMINGUEZ ALLG IMMNTX X W/PRV ALLGIC XTRCS 1 NJX 12/10 12:00:00 AM EDT [facility] ([facility]) PROF DOMINGUEZ ALLG IMMNTX X W/PRV ALLGIC XTRCS 1 NJX 11/19 12:00:00 AM EDT [facility] ([facility]) PREPJ& ALLERGEN IMMUNOTHERAPY 1/GROUP EXERCISE CLASS INSTRUCTOR ANTIGEN 11/02/2019 12:00:00 AM EDT [facility] ([facility]) PROF DOMINGUEZ ALLG IMMNTX X W/PRV ALLGIC XTRCS 1 NJX 10/30 12:00:00 AM EDT [facility] ([facility]) PROF ANGELICA HARTMANNG IMMNTX X W/PRV ALLGIC XTRCS 1 NJX 10/10 12:00:00 AM EDT [facility] ([facility]) BRNCDILAT RSPSE SPMTRY PRE&POST-BRNCDILAT ADMN 020 12:00:00 AM EDT [facility] ([facility]) PROF DOMINGUEZ ALLG IMMNTX X W/PRV ALLGIC XTRCS 1 NJX 09/20 12:00:00 AM EDT [facility] ([facility]) PROF DOMINGUEZ ALLG IMMNTX X W/PRV ALLGIC XTRCS 1 NJX 08/28 12:00:00 AM EDT [facility] ([facility]) PROF DOMINGUEZ ALLG IMMNTX X W/PRV ALLGIC XTRCS 1 NJX 08/10 12:00:00 AM EST [facility] ([facility]) PROF DOMINGUEZ ALLG IMMNTX X W/PRV ALLGIC XTRCS 1 NJX 08/10 12:00:00 AM EST [facility] ([facility]) PROF DOMINGUEZ ALLG IMMNTX X W/PRV ALLGIC XTRCS 1 NJX 07/20 12:00:00 AM EST [facility] ([facility]) PROF [facility] ALLG IMMNTX X W/PRV ALLGIC XTRCS 1 NJX 07/06 12:00:00 AM EST [facility] ([facility]) PROF SV ALLG IMMNTX X W/PRV ALLGIC XTRCS 1 NJX 07/03 12:00:00 AM EST [facility] ([facility]) PROF SV ALLG IMMNTX X W/PRV ALLGIC XTRCS 1 NJX 06/29 12:00:00 AM EST [facility] ([facility]) PROF [facility] ALLG IMMNTX X W/PRV ALLGIC XTRCS 1 NJX 06/26 12:00:00 AM EST [facility] ([facility]) PROF [facility] ALLG IMMNTX X W/PRV ALLGIC XTRCS 1 NJX 06/22 12:00:00 AM EST [facility] ([facility]) PROF [facility] ALLG IMMNTX X W/PRV ALLGIC XTRCS 1 NJX 06/19 12:00:00 AM EST [facility] ([facility]) PROF [facility] ALLG IMMNTX X W/PRV ALLGIC XTRCS 1 NJX 06/12 12:00:00 AM EST [facility] ([facility]) Records Release Fee 06/12/2019 12:00:00 AM EST [facility] ([facility], ) PROF [facility] ALLG IMMNTX X W/PRV ALLGIC XTRCS 1 NJX 06/09 12:00:00 AM EST [facility] ([facility]) Endoscopy Upper GI Biopsy 06/05/2019 12:00:00 AM EST [facility] ([facility], ) Reynolds Eso Acid Reflux Test 06/05/2019 12:00:00 AM EST [facility] ([facility], ) [facility] ALLG IMMNTX X W/PRV ALLGIC XTRCS 1 NJX 06/01 12:00:00 AM EST [facility] ([facility]) [facility] ALLG IMMNTX X W/PRV ALLGIC XTRCS 1 NJX 05/29 12:00:00 AM EST [facility] ([facility]) PROF [facility] ALLG IMMNTX X W/PRV ALLGIC XTRCS 1 NJX 05/25 12:00:00 AM EST [facility] ([facility]) BRNCDILAT RSPSE SPMTRY PRE&POST-BRNCDILAT ADMN 019 12:00:00 AM EST [facility] ([facility]) PRESSURIZED/NONPRESSURIZED INHALATION TREATMENT 2018 12:00:00 AM EST [facility] ([facility]) PROF SV ALLG IMMNTX X W/PRV ALLGIC XTRCS 1 NJX 05/22 12:00:00 AM EST [facility] ([facility]) PROF SV ALLG IMMNTX X W/PRV ALLGIC XTRCS 1 NJX 05/16 12:00:00 AM EST [facility] ([facility]) PROF SV ALLG IMMNTX X W/PRV ALLGIC XTRCS 1 NJX 05/08 12:00:00 AM EST [facility] ([facility]) Results ID Date Data Source [id number] 06/29/2020 10:00:00 AM EST [facility] Name Value Range Interpretation Code Description Data Rochelle rce(s) Supporting Document(s) SARS coronavirus 2 RNA Not Detected [facility] [place] This lab was ordered by [facility] and reported by [facility]. ID Date Data Source [id number] 02/19/2020 06:24:02 PM EDT [facility] PC[facility]: Elham Larios: 1960Provider: Staci JosuéCésar: 02/07/2020 History of Present IllnessPatricia is here today for follow-up of right fourth toe fracture. She states that she is feeling pretty well. She has no complaints. She has returned to activity without major concern. Results/DataXRays were ordered, obtained and interpreted today in the office. Indication: pain/dysfunction. Side: Right Site: Foot Views: 3 Views AP/Lateral/Internal Oblique Findings: no new fractures or dislocations, bone fragments are in good position callus is present. AssessmentRight fourth toe distal phalanx fracture, nondisplacedRight fourth toe proximal phalanx fracture, nondisplaced Plan X-Ray I Foot - 3 views (XRays were ordered, obtained and interpreted today in theoffice. Indication: pain/dysfunction.); Status:Complete; Done: [id number] Perform:SOS22; Due:[id number]; Last Updated By:Rosa Elena Pollock; 02/07/2020 2:40:13 PM;Ordered; For:Right foot pain; Ord ered By:Lisa Samuels;Weight Bearing Status : Weight bearingLaterality: : I discussed my findings with the patient. She really is doing very well overall. At this point, she may resume activity. If she has any concerns, she may contact me here. I will see her back here for follow-up in a month or as needed. Signatures Electronically signed by : Lisa Samuels DPM; Feb 07 2020 3:32PM EST (Author) Electronically signed by : Lisa Samuels DPM; Feb 19 2020 6:24PM EST (Author) Name Value Range Interpretation Code Description Data Rochelle rce(s) Supporting Document(s) ID Date Data Source [id number] 01/09/2020 08:56:28 AM EDT [facility] PCName: Elham GhoshB: 1960Provider: Becka Samuels: 01/08/2020 History of Present IllnessCHIEF COMPLAINTRight foot 4th toe pain. HISTORY OF PRESENT ILLNESSPatricia is a 59-year-old female who presents today for an initial evaluation with me regarding her right foot injury. She sustained the injury on 12/19/2019 when she stubbed her toes while walking. She was seen at the urgent care where she was informed that she has a fracture on the right side of the 4th toe. She showed me a picture that was taken after the injury and it shows that she had some coloration to the right foot. The patient reports that she is continuing to experience swelling, tightness, tingling, and burning sensation, especially as the day progresses. The patient states that she presented to Dr. Almanzar for fiollow up of a different concern and had also injured her second toe at that time, and he advised that that fracture would heal on its own. She has not seen anyone other than the urgent care for this concern. She has a history of surgery on her right foot. Results/Data OtherOutside x-rays of the right foot that accompany the patient were taken at [facility] on 01/04/2020 and are reviewed. 3 [id number] views reveal a nondisplaced fracture of the distal phalanx of the 4th toe, as well as an oblique nondisplaced fracture of the proximal phalanx of the 4th toe. 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 AssessmentASSESSMENT1. Right 4th toe proximal phalanx fracture, nondisplaced.2. Right 4th toe distal phalanx fracture, nondisplaced. Plan 1. Stop: Cinnamon 500 MG Oral Tablet Dispense: 0 Days ; #: Sufficient; Refill: 0; SANDRA = N; Record; Last Updated By: Charlie Madera; 01/08/2020 8:23:23 AM 2. Stop: raNITIdine 150 Max Strength TABS Dispense: 0 Days ; #: Sufficient; Refill: 0; SANDRA = N; Record; Last Updated By: Charlie Madera; 01/08/2020 8:23:23 AM PLANI discussed the findings with the patient. The patient suffered nondisplaced fractures of the r ight 4th toe distal phalanx and proximal phalanx. I reassured the patient that the symptoms that she is experiencing are normal after a toe fracture. Since there is no displacement of the fractures and there are already signs of healing, nonoperative treatment is recommended. I advised that taping may be used to support the toe and maintain alignment. I advised her to refrain from wearing flip-flops and recommended that she try wearing sandals with a strap. I added that bracing, icing, and elevation would be of benefit to help reduce the swelling. Activity and weight-bearing is limited until the patient feels better and has minimal pain. I informed her that it takes approximately 6-8 weeks for the fractures to heal and that the swelling can be present for approximately 6 months. She will follow up with me in 3-4 weeks for repeat x-rays of the right foot. Scribed by Judy HE on 01/09/2020 at 08:19 AM for Lisa Samuels Signatures Electronically signed by : Wendy Barnard MA; Jan 09 2020 8:19AM EST (Author) Electronically signed by : Lisa Samuels DPM; Jan 09 2020 8:56AM EST (Author) Name Value Range Interpretation Code Description Data Rochelle rce(s) Supporting Document(s) ID Date Data Source [id number] 06/05/2019 12:54:00 PM EST [facility] ([facility], ) Name Value Range Interpretation Code Description Data Rochelle rce(s) Supporting Document(s) [facility] (SEE NOTE) [facility], ) FINAL DIAGNOSIS Stomach, biopsy: No significant pathologic change. No Helicobacter organisms identified. 06/09/2019 - 1103 CLINICAL DIAGNOSIS Chronic acid reflux 06/08/2019 - 1312 GROSS DIAGNOSIS Received in formalin labeled "gastric biopsy R/O H. pylori" is a 0.3 cm. piece of arriaga mucosa. All in one. -BP 06/08/2019 - 1312 Signed MARK HEWITT MD 06/09/2019 1152 Procedure Social History Code Duration Value Status Description Data Source(s ) Smoking 04/04/2020 12:00:00 AM EDT Patient has never smoked co mpleted Patient has never smoked [facility] ([facility] ) Smoking 02/17/2020 12:00:00 AM EDT Patient has never smoked co mpleted Patient has never smoked [facility] ([facility], [facility]) Vital Signs ID Date Data Source UNK Name Value Range Interpretation Code Description Data Source(s) Body mass index (BMI) [Ratio] 23.5 kg/m2 23.5 k g/m2 [facility] ([facility]) Diastolic blood pressure 78 mm[Hg] 78 mm[Hg] [facility] ([facility]) Systolic blood pressure 133 mm[Hg] 133 mm[Hg] M EDENT ([facility]) Respiratory rate 16 /min 16 /min [facility] ( [facility]) Heart rate 84 /min 84 /min [facility] ([facility] Body height 61 [in_i] 61 [in_i] [facility] ([facility] 5'1" Body weight 124.38 [lb_av] 124.38 [lb_av] MED[facility] T ([facility]) Body mass index (BMI) [Ratio] 22.7 kg/m2 22.7 k g/m2 [facility] ([facility], [facility]) Body height 61 [in_i] 61 [in_i] [facility] ([facility], [facility]) 5'1" Body weight 120.00 [lb_av] 120.00 [lb_av] MEDEN T ([facility], [facility]) Body temperature 98.5 [degF] 98.5 [degF] [facility] ([facility]) Oxygen saturation in Arterial blood by Pulse oximetry 97 % 97 % [facility] ([facility], [facility]) Heart rate 86 /min 86 /min [facility] ([facility], [facility]) Diastolic blood pressure 77 mm[Hg] 77 mm[Hg] [facility] ([facility], [facility]) Systolic blood pressure 124 mm[Hg] 124 mm[Hg] M EDENT ([facility], [facility]) Oxygen saturation in Arterial blood by Pulse oximetry 97 % 97 % [facility] ([facility], [facility]) Respiratory rate 20 /min 20 /min [facility] ( [facility], [facility]) Heart rate 78 /min 78 /min [facility] ([facility], [facility]) Diastolic blood pressure 75 mm[Hg] 75 mm[Hg] [facility] ([facility], [facility]) Systolic blood pressure 121 mm[Hg] 121 mm[Hg] M EDENT ([facility], [facility]) Body mass index (BMI) [Ratio] 22.7 kg/m2 22.7 k g/m2 [facility] ([facility], [facility]) Body height 61 [in_i] 61 [in_i] [facility] ([facility], [facility]) 5'1" Body weight 120.00 [lb_av] 120.00 [lb_av] MEDEN T ([facility], [facility]) Body temperature 98.5 [degF] 98.5 [degF] MED[facility] ([facility], [facility]) Body mass index (BMI) [Ratio] 23.5 kg/m2 23.5 k g/m2 [facility] ([facility]) Diastolic blood pressure 78 mm[Hg] 78 mm[Hg] [facility] ([facility]) Systolic blood pressure 145 mm[Hg] 145 mm[Hg] M EDENT ([facility]) Respiratory rate 18 /min 18 /min [facility] ( [facility]) Heart rate 97 /min 97 /min [facility] ([facility] Body height 61 [in_i] 61 [in_i] [facility] ([facility]) 5'1" Body weight 124.12 [lb_av] 124.12 [lb_av] MEDEN T ([facility]) Body weight 54.432 kg 54.432 kg [facility] ([facility]) Body mass index (BMI) [Ratio] 22.7 kg/m2 22.7 k g[facility] Body weight 120.00 [lb_av] 120.00 [lb_av] [facility] Body height 61 [in_i] 61 [in_i] MED[facility] ([facility]) 5'1" Diastolic blood pressure 62 mm[Hg] 62 mm[Hg] [facility] ([facility]) Systolic blood pressure 116 mm[Hg] 116 mm[Hg] EDENT ([facility]) Body mass index (BMI) [Ratio] 22.9 kg/m2 22.9 k g/m2 [facility] ([facility]) Diastolic blood pressure 69 mm[Hg] 69 mm[Hg] [facility] ([facility]) Systolic blood pressure 121 mm[Hg] 121 mm[Hg] [facility] ([facility]) Respiratory rate 16 /min 16 /min [facility] ( [facility]) Heart rate 77 /min 77 /min [facility] ([facility] Body height 61 [in_i] 61 [in_i] [facility] ([facility]) 5'1" Body weight 121.25 [lb_av] 121.25 [lb_av] MEDEN T ([facility]) Diastolic blood pressure 80 mm[Hg] 80 mm[Hg] eCW1 ([facility]) Systolic blood pressure 124 mm[Hg] 124 mm[Hg] e CW1 ([facility]) Body temperature 98.1 [degF] 98.1 [degF] eCW1 ( [facility]) Respiratory rate 18 /min 18 /min eCW1 ([facility]) Heart rate 104 /min 104 /min eCW1 ([facility]) Body mass index (BMI) [Ratio] 23.58 kg/m2 23.58 kg/m2 eCW1 ([facility]) Body height 60.75 [in_us] 60.75 [in_us] eCW1 ([facility]) Body weight Measured 123.8 [lb_av] 123.8 [lb_av ] eCW1 ([facility]) Body mass index (BMI) [Ratio] 23.2 kg/m2 23.2 k g/m2 [facility] ([facility], [facility]) Body height 61 [in_i] 61 [in_i] MED[facility] ([facility]) 5'1" Body weight 123.00 [lb_av] 123.00 [lb_av] MEDEN T ([facility], [facility]) Body temperature 98.4 [degF] 98.4 [degF] MED[facility] ([facility], [facility]) Oxygen saturation in Arterial blood by Pulse oximetry 98 % 98 % [facility] ([facility], [facility]) Respiratory rate 16 /min 16 /min MED[facility] ( [facility], [facility]) Heart rate 75 /min 75 /min MED[facility] ([facility], [facility]) Diastolic blood pressure 73 mm[Hg] 73 mm[Hg] MED[facility] ([facility], [facility]) Systolic blood pressure 112 mm[Hg] 112 mm[Hg] M EDENT ([facility], [facility]) Patient Treatment Plan of Care Planned Activity Planned Date Details Description Data Source (s) Budesonide 0.16 MG/ACTUAT / formoterol f umarate 0.0045 MG/ACTUAT Metered Dose Inhaler 12/08/2018 09:00:53 AM EDT LAURA GRAHAM ([facility])
[2020-07-04] MEDS ORDERED: LIDOCAINE 2% 100MG/5ML SDV (FOR ANES.) As Ordered ONE (09:30)
[2020-07-04] MEDS ORDERED: propofoL 200 MG/20 ML VIAL As Ordered ONE (09:30)
[2020-07-04 09:45] VITALS: BP 147/63
--- NOTE | 2020-07-04 09:55 | ROOR ---
Patient Name: Felicia Franco Procedure Date: 07/04/2020 8:59 AM Date of : 1960 Age: 59 Room: [facility] Gender: Female Note Status: Finalized Procedure: Colonoscopy Indications: Screening for colorectal malignant neoplasm Providers: Carlito Lechuga MD Referring MD: ROCAEL Contreras Requesting Provider: Medicines: Monitored Anesthesia Care Complications: No immediate complications. Procedure: Pre-Anesthesia Assessment: - Prior to the procedure, a History and Physical was performed, and patient medications and allergies were reviewed. The patient is competent. The risks and benefits of the procedure and the sedation options and risks were discussed with the patient. All questions were answered and informed consent was obtained. Patient identification and proposed procedure were verified by the physician, the nurse and the anesthesiologist in the procedure room. Mental Status Examination: alert and oriented. Airway Examination: normal oropharyngeal airway and neck mobility. Respiratory Examination: clear to auscultation. CV Examination: normal. Prophylactic Antibiotics: The patient does not require prophylactic antibiotics. Prior Anticoagulants: The patient has taken no previous anticoagulant or antiplatelet agents. ASA Grade Assessment: II - A patient with mild systemic disease. After reviewing the risks and benefits, the patient was deemed in satisfactory condition to undergo the procedure. The anesthesia plan was to use monitored anesthesia care (MAC). Immediately prior to administration of medications, the patient was re-assessed for adequacy to receive sedatives. The heart rate, respiratory rate, oxygen saturations, blood pressure, adequacy of pulmonary ventilation, and response to care were monitored throughout the procedure. The physical status of the patient was re-assessed after the procedure. The Colonoscope was introduced through the anus and advanced to the terminal ileum, with identification of the appendiceal orifice and IC valve. The colonoscopy was performed without difficulty. The patient tolerated the procedure well. The quality of the bowel preparation was good. The terminal ileum, ileocecal valve, appendiceal orifice, and rectum were photographed. Scope insertion time was 2 minutes. Scope withdrawal time was 8 minutes. The total duration of the procedure was 10 minutes. Findings: The perianal and digital rectal examinations were normal. The terminal ileum appeared normal. Patchy mild mucosal changes characterized by congestion (edema) and loss of vascularity were found in the distal transverse colon. Biopsies were taken with a cold forceps for histology. Verification of patient identification for the specimen was done by the physician and nurse using the patient's name, date and medical record number. Estimated blood loss was minimal. Non-bleeding external and internal hemorrhoids were found during retroflexion. The hemorrhoids were medium-sized. Impression: - The examined portion of the ileum was normal. - Patchy mild mucosal changes were found in the distal transverse colon secondary to colitis. Biopsied. - Non-bleeding external and internal hemorrhoids. Recommendation: - Patient has a contact number available for emergencies. The signs and symptoms of potential delayed complications were discussed with the patient. Return to normal activities tomorrow. Written discharge instructions were provided to the patient. - High fiber diet. - Continue present medications. - Await pathology results. - Repeat colonoscopy in 10 years for screening purposes. - Return to GI clinic in 2 -3 weeks. - Return to primary care physician. Procedure Code(s): --- Professional --- 68171, Colonoscopy, flexible; with biopsy, single or multiple Diagnosis Code(s): --- Professional --- Z12.11, Encounter for screening for malignant neoplasm of colon K64.8, Other hemorrhoids K52.9, Noninfective gastroenteritis and colitis, unspecified CPT copyright 2019 [employer]. All rights reserved. The codes documented in this report are preliminary and upon early morning review may be revised to meet current compliance requirements. Carlito Lechuga MD Carlito Lechuga MD 07/04/2020 9:54:52 AM Electronically signed by Carlito Lechuga MD Number of Addenda: 0 Note Initiated On: 07/04/2020 8:59 AM Estimated Blood Loss: Estimated blood loss was minimal.
== END 2020-07-04 10:09 | disposition home or self-care (01) ==
LOC: M OPP 07:27
PROVIDERS: ATTEND Internal Medicine Gastroenterology
DX: Z12.11 Encounter for screening for malignant neoplasm of colon (principal); K64.8 Other hemorrhoids; K52.9 Noninfective gastroenteritis and colitis, unspecified; R12 Heartburn; D50.9 Iron deficiency anemia, unspecified; J45.909 Unspecified asthma, uncomplicated; K21.9 Gastro-esophageal reflux disease without esophagitis; Z88.1 Allergy status to other antibiotic agents; Z88.3 Allergy status to other anti-infective agents; Z91.09 Other allergy status, other than to drugs and biological substances; Z79.899 Other long term (current) drug therapy

== ENCOUNTER → 2020-07-22 | Outpatient (CLI) | payer OTHER ==
[~2020-07-22] MED LIST changes: -NS 1,000 ML IV ONE
[2020-07-22 17:09] LABS: BASO # 0.1 10^3/uL (0.0-0.2); BASO % 1.4 % (0.0-1.0); EOS % 0.8 % (0.0-3.0); HEMATOCRIT 42.6 % (36.0-47.0); HEMOGLOBIN 13.8 g/dl (12.0-15.5); LYMPH # 1.4 10^3/uL (1.5-5.0); LYMPH % 28.5 % (24.0-44.0); MEAN CORPUSCULAR HEMOGLOBIN 29.7 pg (27.0-33.0); MEAN CORPUSCULAR HGB CONC 32.4 g/dl (32.0-36.5); MEAN CORPUSCULAR VOLUME 91.8 fl (80.0-96.0); MONO # 0.6 10^3/uL (0.0-0.8); MONO % 11.4 % (0.0-5.0); NEUTROPHILS # 2.9 10^3/uL (1.5-8.5); NEUTROPHILS % 57.3 % (36.0-66.0); PLATELET COUNT, AUTOMATED 176 10^3/uL (150-450); RED BLOOD COUNT 4.64 10^6/uL (4.00-5.40)
[2020-07-22 17:24] LABS: BLOOD UREA NITROGEN 15 MG/DL (7-18); CALCIUM LEVEL 9.5 MG/DL (8.8-10.2); CARBON DIOXIDE LEVEL 29 MEQ/L (21-32); CHLORIDE LEVEL 106 MEQ/L (98-107); CREATININE FOR GFR 0.67 MG/DL (0.55-1.30); GLOMERULAR FILTRATION RATE > 60.0 (>45); GLUCOSE, FASTING 83 MG/DL (70-100); POTASSIUM SERUM 4.1 MEQ/L (3.5-5.1); SODIUM LEVEL 142 MEQ/L (136-145)
[2020-07-22 17:51] LABS: ERYTHROCYTE SEDIMENTATION RATE 12 mm/hr (0-30)
[2020-07-24 13:08] LABS: ANTINUCLEAR ANTIBODIES DIRECT Negative (Negative)
== END ==
LOC: M LAB 13:27
PROVIDERS: ATTEND Internal Medicine Gastroenterology
DX: K51.512 Left sided colitis with intestinal obstruction (principal)

== ENCOUNTER → 2020-08-06 | Outpatient (REF) | payer OTHER ==
[2020-08-06 15:09] LABS: C REACTIVE PROTEIN QUANTITATIV < 0.30 MG/DL (0.00-0.30); FREE T4 1.11 NG/DL (0.76-1.46); THYROID STIMULATING HORMONE 0.875 uIU/ML (0.358-3.740)
== END ==
LOC: M SFHCPLAZ 09:23
PROVIDERS: ATTEND Internal Medicine Infectious Disease
DX: R10.84 Generalized abdominal pain (principal); Z77.120 Contact with and (suspected) exposure to mold (toxic); M25.50 Pain in unspecified joint; R63.4 Abnormal weight loss

== ENCOUNTER → 2020-08-06 | Outpatient (REF) | payer OTHER | LOC: M SFHCPLAZ 13:27 | PROVIDERS: ATTEND Internal Medicine Infectious Disease | DX: R10.84 Generalized abdominal pain (principal) ==

== ENCOUNTER → 2020-08-06 | Outpatient (CLI) | payer OTHER ==
[2020-08-06 13:54] LABS: BASO # 0.1 10^3/uL (0.0-0.2); EOS # 0.1 10^3/uL (0.0-0.5); EOS % 0.7 % (0.0-3.0); HEMATOCRIT 44.2 % (36.0-47.0); HEMOGLOBIN 14.3 g/dl (12.0-15.5); LYMPH # 1.5 10^3/uL (1.5-5.0); LYMPH % 22.5 % (24.0-44.0); MEAN CORPUSCULAR HEMOGLOBIN 29.9 pg (27.0-33.0); MEAN CORPUSCULAR HGB CONC 32.4 g/dl (32.0-36.5); MEAN CORPUSCULAR VOLUME 92.3 fl (80.0-96.0); MONO # 0.6 10^3/uL (0.0-0.8); MONO % 9.3 % (2.0-8.0); NEUTROPHILS # 4.4 10^3/uL (1.5-8.5); NEUTROPHILS % 66.4 % (36.0-66.0); PLATELET COUNT, AUTOMATED 186 10^3/uL (150-450); RED BLOOD COUNT 4.79 10^6/uL (4.00-5.40); WHITE BLOOD COUNT 6.7 10^3/uL (4.0-10.0)
[2020-08-06 14:26] LABS: ALBUMIN 4.4 GM/DL (3.2-5.2); ALT/SGPT 27 U/L (12-78); BILIRUBIN,DIRECT < 0.1 MG/DL (0.0-0.2); BILIRUBIN,TOTAL 0.2 MG/DL (0.2-1.0); BLOOD UREA NITROGEN 18 MG/DL (7-18); CREATININE FOR GFR 0.96 MG/DL (0.55-1.30); GLOMERULAR FILTRATION RATE > 60.0 (>45); TOTAL PROTEIN 7.6 GM/DL (6.4-8.2)
== END ==
LOC: M PLALAB 09:24
PROVIDERS: ATTEND Internal Medicine Gastroenterology
DX: K51.512 Left sided colitis with intestinal obstruction (principal); R63.4 Abnormal weight loss

== ENCOUNTER → 2020-09-18 | Outpatient (REF) | payer OTHER | LOC: M SFHCWAGY 13:39 | PROVIDERS: ATTEND Nurse Practitioner Women's Health | DX: Z12.4 Encounter for screening for malignant neoplasm of cervix (principal) ==

== ENCOUNTER → 2020-12-25 | Outpatient (CLI) | payer OTHER ==
[2020-12-25 11:25] LABS: BASO # 0.1 10^3/uL (0.0-0.2); BASO % 1.1 % (0.0-1.0); EOS # 0.1 10^3/uL (0.0-0.5); EOS % 2.2 % (0.0-3.0); HEMATOCRIT 41.9 % (36.0-47.0); HEMOGLOBIN 13.8 g/dl (12.0-15.5); LYMPH # 1.5 10^3/uL (1.5-5.0); LYMPH % 33.4 % (24.0-44.0); MEAN CORPUSCULAR HEMOGLOBIN 30.1 pg (27.0-33.0); MEAN CORPUSCULAR HGB CONC 32.9 g/dl (32.0-36.5); MEAN CORPUSCULAR VOLUME 91.5 fl (80.0-96.0); MONO # 0.5 10^3/uL (0.0-0.8); MONO % 10.3 % (2.0-8.0); NEUTROPHILS # 2.4 10^3/uL (1.5-8.5); NEUTROPHILS % 52.8 % (36.0-66.0); PLATELET COUNT, AUTOMATED 171 10^3/uL (150-450); RED BLOOD COUNT 4.58 10^6/uL (4.00-5.40); WHITE BLOOD COUNT 4.6 10^3/uL (4.0-10.0)
[2020-12-25 12:24] LABS: ALBUMIN 3.8 GM/DL (3.2-5.2); ALT/SGPT 27 U/L (12-78); BILIRUBIN,TOTAL 0.4 MG/DL (0.2-1.0); BLOOD UREA NITROGEN 17 MG/DL (7-18); CALCIUM LEVEL 8.6 MG/DL (8.8-10.2); CARBON DIOXIDE LEVEL 30 MEQ/L (21-32); CHLORIDE LEVEL 106 MEQ/L (98-107); CHOLESTEROL LEVEL 220 MG/DL (<200); CHOLESTEROL RISK RATIO 3.055 (<5); CREATININE FOR GFR 0.68 MG/DL (0.55-1.30); FERRITIN 374 NG/ML (8-252); GLOMERULAR FILTRATION RATE > 60.0 (>45); GLUCOSE, FASTING 82 MG/DL (70-100); HDL CHOLESTEROL 72 MG/DL (>40); IRON (FE) 98 UG/DL (50-170); LDL CHOLESTEROL 137 MG/DL (<100); NON-HDL-C 148 MG/DL; PERCENT SATURATION 36.3 % (13.2-45.0); POTASSIUM SERUM 4.3 MEQ/L (3.5-5.1); SODIUM LEVEL 140 MEQ/L (136-145); THYROID STIMULATING HORMONE 0.972 uIU/ML (0.358-3.740); TOTAL 25(OH) VITAMIN D 43.8 NG/ML (30.0-100.0); TOTAL IRON BINDING CAPACITY 270 UG/DL (250-450); TOTAL PROTEIN 6.8 GM/DL (6.4-8.2); TRIGLYCERIDES LEVEL 55 MG/DL (<150)
== END ==
LOC: M LAB 09:38
PROVIDERS: ATTEND Physician Assistant Medical
DX: E78.2 Mixed hyperlipidemia (principal); K21.9 Gastro-esophageal reflux disease without esophagitis; E55.9 Vitamin D deficiency, unspecified; D50.8 Other iron deficiency anemias

== ENCOUNTER 2021-01-22 08:31 | Emergency (ER) | payer OTHER ==
[2021-01-22 09:53] LABS: BASO # 0.1 10^3/uL (0.0-0.2); BASO % 0.7 % (0.0-1.0); EOS # 0.1 10^3/uL (0.0-0.5); EOS % 0.9 % (0.0-3.0); HEMATOCRIT 41.3 % (36.0-47.0); HEMOGLOBIN 14.1 g/dl (12.0-15.5); LYMPH # 1.4 10^3/uL (1.5-5.0); LYMPH % 19.8 % (24.0-44.0); MEAN CORPUSCULAR HEMOGLOBIN 31.1 pg (27.0-33.0); MEAN CORPUSCULAR HGB CONC 34.1 g/dl (32.0-36.5); MONO # 0.7 10^3/uL (0.0-0.8); MONO % 9.9 % (2.0-8.0); NEUTROPHILS # 4.7 10^3/uL (1.5-8.5); NEUTROPHILS % 68.4 % (36.0-66.0); PLATELET COUNT, AUTOMATED 167 10^3/uL (150-450); RED BLOOD COUNT 4.54 10^6/uL (4.00-5.40); WHITE BLOOD COUNT 6.9 10^3/uL (4.0-10.0)
[2021-01-22 10:05] LABS: INR 0.94; PARTIAL THROMBOPLASTIN TIME 25.1 SECONDS (25.9-37.0)
--- NOTE | 2021-01-22 10:08 | REP ---
INDICATION: RUQ pain, prior cholecystectomy. COMPARISON: None. TECHNIQUE: Routine ultrasound FINDINGS: The gallbladder has been surgically removed. The common bile duct measures 4 mm. The intrahepatic bile ducts are not dilated. The liver shows normal size no core pattern. The visualized portions of the pancreas are unremarkable. The right kidney shows normal size measuring 9.2 cm in length. There is no hydronephrosis, mass, cyst or calculus. IMPRESSION: Normal right upper quadrant ultrasound after cholecystectomy. <Electronically signed by Inderjit Stone > 01/22/21 [id number]
[2021-01-22 10:21] LABS: ALBUMIN 3.9 GM/DL (3.2-5.2); ALT/SGPT 26 U/L (12-78); BILIRUBIN,DIRECT < 0.1 MG/DL (0.0-0.2); BILIRUBIN,TOTAL 0.4 MG/DL (0.2-1.0); BLOOD UREA NITROGEN 23 MG/DL (7-18); CALCIUM LEVEL 9.2 MG/DL (8.8-10.2); CARBON DIOXIDE LEVEL 29 MEQ/L (21-32); CHLORIDE LEVEL 109 MEQ/L (98-107); CREATININE FOR GFR 0.69 MG/DL (0.55-1.30); FREE T4 1.02 NG/DL (0.76-1.46); GLOMERULAR FILTRATION RATE > 60.0 (>45); GLUCOSE, FASTING 94 MG/DL (70-100); LIPASE 185 U/L (73-393); SODIUM LEVEL 142 MEQ/L (136-145); TOTAL PROTEIN 7.3 GM/DL (6.4-8.2)
[2021-01-22 10:58] VITALS: BP 135/71
== END 2021-01-22 11:12 | disposition home or self-care (01) ==
LOC: M ED 08:31
DX: R63.8 Other symptoms and signs concerning food and fluid intake (principal); R10.9 Unspecified abdominal pain; R11.2 Nausea with vomiting, unspecified; R19.7 Diarrhea, unspecified; K21.9 Gastro-esophageal reflux disease without esophagitis; Z79.899 Other long term (current) drug therapy; Z88.0 Allergy status to penicillin; Z91.89 Other specified personal risk factors, not elsewhere classified

== ENCOUNTER → 2021-02-07 | Outpatient (CLI) | payer OTHER ==
[2021-02-07 08:06] LABS: BASO # 0.1 10^3/uL (0.0-0.2); BASO % 0.9 % (0.0-1.0); EOS # 0.1 10^3/uL (0.0-0.5); EOS % 1.7 % (0.0-3.0); HEMATOCRIT 41.9 % (36.0-47.0); HEMOGLOBIN 13.8 g/dl (12.0-15.5); LYMPH # 1.9 10^3/uL (1.5-5.0); LYMPH % 33.4 % (24.0-44.0); MEAN CORPUSCULAR HEMOGLOBIN 30.3 pg (27.0-33.0); MEAN CORPUSCULAR HGB CONC 32.9 g/dl (32.0-36.5); MEAN CORPUSCULAR VOLUME 91.9 fl (80.0-96.0); MONO # 0.6 10^3/uL (0.0-0.8); MONO % 9.6 % (2.0-8.0); NEUTROPHILS # 3.1 10^3/uL (1.5-8.5); NEUTROPHILS % 54.2 % (36.0-66.0); PLATELET COUNT, AUTOMATED 172 10^3/uL (150-450); RED BLOOD COUNT 4.56 10^6/uL (4.00-5.40); WHITE BLOOD COUNT 5.7 10^3/uL (4.0-10.0)
== END ==
LOC: M LAB 07:45
PROVIDERS: ATTEND Physician Assistant Medical
DX: R79.89 Other specified abnormal findings of blood chemistry (principal)

== ENCOUNTER → 2021-02-18 | Outpatient (CLI) | payer OTHER | LOC: M LAB 16:34 | PROVIDERS: ATTEND Physician Assistant Medical | DX: R79.89 Other specified abnormal findings of blood chemistry (principal) ==

== ENCOUNTER → 2021-04-15 | Outpatient (CLI) | payer OTHER ==
[~2021-04-15] MED LIST changes: +FAMO20TA PO; +FISH306C PO; +PROHANCE 279.3MG/ML 15ML VIAL As Ordered ONE
--- NOTE | 2021-04-15 11:26 | REPVR ---
PROCEDURE INFORMATION: Exam: MR Head Without and With Contrast Exam date and time: 04/15/2021 10:37 AM Age: 60 years old Clinical indication: Other: Vertigo; Additional info: Elevated ferinton levels w/ vertigo TECHNIQUE: Imaging protocol: MR of the head without and with intravenous contrast. Contrast material: PROHANCE; Contrast volume: 9 ml; Contrast route: INTRAVENOUS (IV); COMPARISON: No relevant prior studies available. FINDINGS: Brain: There is no extra-axial collection or intra-axial mass. Normal parenchymal signal is grossly maintained. There is no diffusion restriction. There is no abnormal enhancement within the brain. The Cerebral ventricles: Normal. No ventriculomegaly. Bones/joints: Unremarkable. Paranasal sinuses: Normal as visualized. No acute sinusitis. Mastoid air cells: Normal as visualized. No mastoid effusion. Orbital cavity: Unremarkable. Soft tissues: Unremarkable. IMPRESSION: No acute findings. Electronically signed by: Bárbara Steward On 04/15/2021 11:25:48 AM
== END ==
LOC: M RAD 09:54
PROVIDERS: ATTEND Specialist
DX: R42 Dizziness and giddiness (principal)
CPT/HCPCS: 70553; A9576

== ENCOUNTER → 2021-04-24 | Outpatient (CLI) | payer OTHER ==
[~2021-04-24] MED LIST changes: -PROHANCE 279.3MG/ML 15ML VIAL As Ordered ONE
== END ==
LOC: M LAB 10:22
DX: R19.7 Diarrhea, unspecified (principal)

== ENCOUNTER → 2021-07-10 | Outpatient (CLI) | payer OTHER ==
[~2021-07-10] MED LIST changes: -OMEP-221 PO; +OMEP40CA5 PO
[2021-07-10 10:26] LABS: BASO # 0.1 10^3/uL (0.0-0.2); BASO % 1.5 % (0.0-1.0); EOS # 0.2 10^3/uL (0.0-0.5); EOS % 2.6 % (0.0-3.0); HEMATOCRIT 44.3 % (36.0-47.0); HEMOGLOBIN 14.6 g/dl (12.0-15.5); LYMPH # 1.7 10^3/uL (1.5-5.0); LYMPH % 25.2 % (24.0-44.0); MEAN CORPUSCULAR HEMOGLOBIN 30.2 pg (27.0-33.0); MEAN CORPUSCULAR VOLUME 91.7 fl (80.0-96.0); MONO # 0.7 10^3/uL (0.0-0.8); MONO % 10.8 % (2.0-8.0); NEUTROPHILS # 3.9 10^3/uL (1.5-8.5); NEUTROPHILS % 59.6 % (36.0-66.0); PLATELET COUNT, AUTOMATED 209 10^3/uL (150-450); RED BLOOD COUNT 4.83 10^6/uL (4.00-5.40); WHITE BLOOD COUNT 6.6 10^3/uL (4.0-10.0)
[2021-07-10 10:59] LABS: ALBUMIN 3.8 GM/DL (3.2-5.2); ALT/SGPT 28 U/L (12-78); BILIRUBIN,TOTAL 0.2 MG/DL (0.2-1.0); BLOOD UREA NITROGEN 23 MG/DL (7-18); CALCIUM LEVEL 9.5 MG/DL (8.8-10.2); CARBON DIOXIDE LEVEL 30 MEQ/L (21-32); CHLORIDE LEVEL 104 MEQ/L (98-107); CREATININE FOR GFR 0.79 MG/DL (0.55-1.30); GLOMERULAR FILTRATION RATE > 60.0 (>45); GLUCOSE, FASTING 85 MG/DL (70-100); IRON (FE) 95 UG/DL (50-170); SODIUM LEVEL 140 MEQ/L (136-145); TOTAL IRON BINDING CAPACITY 328 UG/DL (250-450); TOTAL PROTEIN 7.4 GM/DL (6.4-8.2)
== END ==
LOC: M LAB 08:38
PROVIDERS: ATTEND Nurse Practitioner Adult Health
DX: R79.0 Abnormal level of blood mineral (principal)